=== PATIENT | female | born 1945 | race Caucasian/White ===

== ENCOUNTER 2021-09-05 13:36 | Inpatient (IN) | payer OTHER, BC, SELFPAY ==
[~2021-09-05] VITALS: Ht 152.4 cm; Wt 56.7 kg
[~2021-09-05 13:36] MED LIST: ACET-2619 PO; ALEN70SO1 PO; AMOX-999 PO; BLEOS OP; CALC-1236 PO; CEPH250C16 PO; CHOL100012 PO; FENO145T PO; FURO-570 PO; GABA300C PO; HUM SUBQ; INSU100S22 SUBQ; KETO5SOL OP; METO100T14 PO; OMEP20EC11 PO; SPIR50TA PO
[2021-09-05 13:58] VITALS: BP 151/84
--- NOTE | 2021-09-05 14:12 | NUR ---
PT TAKEN TO IMAGING AT THIS TIME
--- NOTE | 2021-09-05 14:21 | NUR ---
76 Y/O F BIBA BLS FROM HOME, C/O L SIDED PAIN AND L HIP PAIN POST MECHANICAL FALL, PT STATES SHE WAS ON FLOOR FOR 4 HOURS BEFORE [facility] ARRIVED. DENIES LOC, SYNCOPE, OR HEAD/NECK PAIN. UPON ARRIVAL, PT HAS L SIDED HEMATOMA ON POSTERIOR HEAD WITH SKIN TEAR ON L ELBOW. [facility] REPORTS PT WAS IN AFIB AND RVR. GLUCOSE EN ROUTE WAS 84. UPON ARRIVAL, PT WAS ASSISTED TO BATHROOM BY RN, INSTRUCTED TO PULL CORD WHEN DONE, PT STOOD UP AND TRIED WALK AND FELL ON L SIDE. NO LOC, NO SYNCOPE. PT WAS ASSISTED TO BED, PUT ON CARDIAC AND OXYGEN MONITOR. ERMD, SECURITY COMPLIANCE ENGINEER, HEALTHCARE ECONOMICS CONSULTANT AND ER DIRECTOR MADE AWARE. PMH: AFIB, DM2, HTN NKA MED: DENIES BLOOD THINNERS OR ANY AT HOME MEDS
[2021-09-05] MEDS ORDERED: DILTIAZEM 25 MG/5 ML VIAL IVP ONE ×4 (14:30→17:10)
[2021-09-05 14:49] LABS: BASOPHILS % (AUTO) 0.6 % (0.0-2.0); EOSINOPHILS % (AUTO) 0.3 % (0.0-4.0); HEMATOCRIT 39.2 % (36-48); HEMOGLOBIN 12.1 g/dL (12.0-16.0); LYMPHOCYTES # (AUTO) 0.7 K/uL (2.5-16.5); MEAN CORPUSCULAR HEMOGLOBIN 22 pg (27-31); MEAN CORPUSCULAR HGB CONC 31 g/dL (33-37); MEAN CORPUSCULAR VOLUME 72.3 fL (80-94); MONOCYTES # (AUTO) 0.7 K/uL (0.8-1.0); MONOCYTES % (AUTO) 8.6 % (1.7-9.3); NEUTROPHILS % (AUTO) 82.5 % (42.2-75.2); PLATELET COUNT (AUTO) 192 K/uL (140-450); RED BLOOD CELL COUNT(AUTO) 5.42 MIL/uL (4.20-5.40); RED CELL DISTRIBUTION WIDTH 36.2 % (11.6-13.7); WHITE BLOOD COUNT (AUTO) 8.4 K/uL (4.8-10.8)
[2021-09-05] MEDS ORDERED: ASPIRIN 81 MG TAB.CHEW PO ONE (14:55)
[2021-09-05 15:08] LABS: PROTHROMBIN TIME 11.2 secs (10.8-13.4)
[2021-09-05 15:10] LABS: ALBUMIN 2.8 g/dL (3.4-5.0); ANION GAP 14.3 (8-16); ASPARTATE AMINOTRANSFERASE 44 U/L (15-37); CARBON DIOXIDE 26.8 mmol/L (21-32); CHLORIDE 100 mmol/L (98-107); CREATININE 1.7 mg/dL (0.6-1.3); GLUCOSE 69 mg/dL (74-106); POTASSIUM 4.1 mmol/L (3.5-5.1); SODIUM SERUM 137 mmol/L (136-145); TOTAL BILIRUBIN 1.1 mg/dL (0.0-1.0); UREA NITROGEN, BLOOD 33 mg/dL (7-18)
[2021-09-05] MEDS ORDERED: DILTIAZEM 30 MG TAB PO ONE (17:10)
--- NOTE | 2021-09-05 17:37 | NUR ---
PT HAS SOFT BOWEL MOVEMENT, STOOL IS DARK BROWN AT THIS TIME. STEVIE CARE DONE. DIAPERED AND PUREWICK PLACED AT THIS TIME.
[2021-09-05] MEDS ORDERED: POTASSIUM CHLORIDE 10 MEQ TABER PO PRN (17:40)
[2021-09-05] MEDS ORDERED: DOCUSATE SODIUM 100 MG GELCAP PO PRN (17:40)
[2021-09-05] MEDS ORDERED: MORPHINE SULFATE 2 MG/ML SYR IVP PRN (17:40)
[2021-09-05] MEDS ORDERED: MAG SULF 2000 MG/WATER PREMIX 50 ML IV PRN (17:40)
[2021-09-05] MEDS ORDERED: ONDANSETRON 4 MG/2 ML VIAL IVP PRN (17:40)
[2021-09-05] MEDS ORDERED: SODIUM PHOS / POTASSIUM PHOS 1 PKT PDR PO PRN (17:40)
[2021-09-05] MEDS ORDERED: LORazepam 2 MG/ML VIAL IM/IVP PRN (17:40)
[2021-09-05] MEDS ORDERED: DEXTROSE 50% 50 ML SYR IVP PRN (17:50)
[2021-09-05 17:54] LABS: BILIRUBIN,URINE NEGATIVE (NEGATIVE); BLOOD, URINE TRACE-I (NEGATIVE); COLOR,URINE YELLOW (YELLOW); LEUKOCYTE ESTERASE ,URINE 1+ (NEGATIVE); NITRITE, URINE POSITIVE (NEGATIVE); PH,URINE 5.5 (5.0-9.0); UGLUCOSE NEGATIVE (NEGATIVE)
[2021-09-05] MEDS: NACL 0.9% 1,000 ML IV SCH (18:04)
[2021-09-05 18:13] LABS: CHOL/HDL RATIO 3.7 (1-4.5); FREE T4 (FREE THYROXINE) 1.57 ng/dL (0.76-1.46); PHOSPHORUS 3.7 mg/dL (2.5-4.9); THYROID STIMULATING HORMONE 2.3 uIU/mL (0.34-3.74)
[2021-09-05 18:28] LABS: APPEARANCE,URINE HAZY (CLEAR)
[2021-09-05 18:34] LABS: RBC,URINE 0-5 /HPF (0-5)
[2021-09-05 18:35] LABS: WBC,URINE 80-100 /HPF (0-5)
[2021-09-05 18:36] LABS: TRICHOMONAS,URINE None Seen /HPF (None Seen); YEAST,URINE None Seen /HPF (None Seen)
--- NOTE | 2021-09-05 19:12 | NUR ---
REPORT RECEIVED FROM JESSA HAYES FOR CONTINUITY OF PT CARE.
--- NOTE | 2021-09-05 19:12 | NUR ---
Pt report given to MACHO GERMAIN. Transfer of care at this time.
--- NOTE | 2021-09-05 19:30 | NUR ---
PT SITTING IN BED W X1 SIDERAIL UP W TRAY AT OTHER SIDE OVER BED. PT EATING DINNER. PT REPORTS 6/10 L ARM AND HIP PAIN. PT TACHYCARDIC AT 119, OTHERWISE VSS. BREATHING EVEN AND UNLABORED. NAD NOTED, WILL CONTIUE TO MONITOR. NS RUNNING TO R FOREARM 20G W 930 ML VTBI.
--- NOTE | 2021-09-05 19:30 | NUR ---
Note bethanieone in EDM - 09/05/21 at 1941 by MARIANN PT SITTING IN BED W X1 SIDERAIL UP W TRAY AT OTHER SIDE OVER BED. PT EATING DINNER. PT REPORTS 6/10 L ARM AND HIP PAIN. PT TACHYCARDIC AT 119, OTHERWISE VSS. BREATHING EVEN AND UNLABORED. NAD NOTED, WILL CONTIUE TO MONITOR. NS RUNNING TP
--- NOTE | 2021-09-05 19:43 | NUR ---
PT FINISHED DINNER, TRAY REMOVED. BED LOCKED IN LOWEST POSITION W X2 SIDERAILS UP FOR PT SAFETY.
--- NOTE | 2021-09-05 19:57 | NUR ---
Ultrasound at bedside.
--- NOTE | 2021-09-05 20:08 | NUR ---
SPOKE W DR. CHE IN REGARDS TO PT HR FLUCTUATING TO 157. PER DR. CHE TO CONTACT DR. MANCILLA.
--- NOTE | 2021-09-05 20:13 | NUR ---
CALLED FOR . WILL RECEIVED A CALL BACK.
--- NOTE | 2021-09-05 20:15 | NUR ---
SPOKE W DR. GODOY ORCHARD WORKER IN REGARD TO PT HR INCREASING TO 150s. PER DR. AMANDA ORDER FOR METOPROLOL 5MG IVP Q3H PRN FOR HR ABOVE 120, AND X1 OF METOPROLOL 100MG TAB X1 HOUR AFTER THE METOPROLOL 5MG IVP ADMINISTRATION. AWARE OF DR. FITZGERALD ORDER.
[2021-09-05] MEDS: METOPROLOL 5 MG/5 ML VIAL IVP PRN (20:57)
[2021-09-05] MEDS: BLOOD GLUCOSE MONITORING 1 DEV DEV FS SCH (21:05)
[2021-09-05] MEDS: INSULIN LISPRO SLIDING SCALE 100 UNITS/ML VIAL SUBQ PRN (21:11)
--- NOTE | 2021-09-05 21:33 | NUR ---
Pt report given to JESSA CAMACHO. Transfer of care at this time.
--- NOTE | 2021-09-05 21:46 | NUR ---
PT SPEAKING ON THE PHONE. BED LOCKED IN LOWEST POSITION W X2 SIDERAILS UP FOR PT SAFETY. BLANKET ON. BREATHING EVEN AND UNLABORED. NAD NOTED, WILL CONTINUE TO MONITOR.
--- NOTE | 2021-09-05 22:07 | NUR ---
Patient will be admitted to care of DR. CHE. Admited to TELEMETRY. Will go to room 123B. Belongings list completed. Report to JESSA YADAV.
[2021-09-06 01:13] VITALS: BP 149/86
[2021-09-06] MEDS: HYDROcodone/APAP 5/325 MG 1 TAB TAB PO PRN ×2 (02:04→13:41)
[2021-09-06 04:00] VITALS: BP 119/55
[2021-09-06] MEDS: NACL 0.9% 1,000 ML IV SCH ×2 (05:05→13:40)
--- NOTE | 2021-09-06 05:51 | NUR ---
the pateint was admitted on 09/05/2021 for dizziness and near syncope with hx of fall in the restroom. Head CT and carotid duplex were negative . the pateint has hx of DM,HTN and AFIB . Her breathing uis even and unlabored. the pateint stated that she has hx of liver cirrhosis and paracentesis. her abdomen is rigid and distended.her feet are swollen . she is on heart monitor.she had afib at rate 110-125 . she lies comfortable in her bed. bed is low position . comfort and safety measures are provided
[2021-09-06 06:28] LABS: BASOPHILS % (AUTO) 0.4 % (0.0-2.0); EOSINOPHILS % (AUTO) 0.3 % (0.0-4.0); HEMOGLOBIN 9.9 g/dL (12.0-16.0); LYMPHOCYTES # (AUTO) 0.5 K/uL (2.5-16.5); LYMPHOCYTES % (AUTO) 10.3 % (20.5-51.1); MEAN CORPUSCULAR HEMOGLOBIN 23 pg (27-31); MEAN CORPUSCULAR HGB CONC 31 g/dL (33-37); MEAN CORPUSCULAR VOLUME 72.8 fL (80-94); MONOCYTES # (AUTO) 0.6 K/uL (0.8-1.0); MONOCYTES % (AUTO) 13.3 % (1.7-9.3); NEUTROPHILS # (AUTO) 3.3 K/uL (1.8-7.7); NEUTROPHILS % (AUTO) 75.7 % (42.2-75.2); PLATELET COUNT (AUTO) 126 K/uL (140-450); RED BLOOD CELL COUNT(AUTO) 4.39 MIL/uL (4.20-5.40); RED CELL DISTRIBUTION WIDTH 35.8 % (11.6-13.7); WHITE BLOOD COUNT (AUTO) 4.4 K/uL (4.8-10.8)
[2021-09-06 06:44] LABS: ALBUMIN 2.2 g/dL (3.4-5.0); ANION GAP 11.6 (8-16); ASPARTATE AMINOTRANSFERASE 33 U/L (15-37); CARBON DIOXIDE 26.1 mmol/L (21-32); CHLORIDE 102 mmol/L (98-107); CREATININE 1.7 mg/dL (0.6-1.3); GLUCOSE 251 mg/dL (74-106); MAGNESIUM 2.2 mg/dL (1.8-2.4); POTASSIUM 4.7 mmol/L (3.5-5.1); SODIUM SERUM 135 mmol/L (136-145); TOTAL BILIRUBIN 0.7 mg/dL (0.0-1.0); UREA NITROGEN, BLOOD 32 mg/dL (7-18)
[2021-09-06 08:00] VITALS: BP 129/66
[2021-09-06] MEDS ORDERED: METOPROLOL SUCCINATE 50 MG TABER PO SCH (09:00)
[2021-09-06] MEDS ORDERED: PREDNISOL/SULFACE 0.23%-10% OP SOL. 5 ML BTL OP SCH (09:00)
[2021-09-06] MEDS ORDERED: KETOROLAC 0.5% OP 3 ML BTL OP SCH (09:00)
--- NOTE | 2021-09-06 10:13 | NUR ---
PATIENT HAS BEEN SCREENED AND CATEGORIZED MODERATE NUTRITION RISK. PATIENT WILL BE SEEN WITHIN 3-5 DAYS OF ADMISSION. 09/08/21 09/10/[address]
[2021-09-06 12:00] VITALS: BP 115/83
[2021-09-06] MEDS: INSULIN LISPRO 100 UNITS/ML VIAL SUBQ SCH ×3 (13:00→17:24)
[2021-09-06] MEDS ORDERED: LORazepam 0.5 MG TAB PO PRN (13:15)
[2021-09-06] MEDS: BLOOD GLUCOSE MONITORING 1 DEV DEV FS SCH ×4 (13:30→21:00)
[2021-09-06] MEDS: METOPROLOL 5 MG/5 ML VIAL IVP PRN (13:38)
[2021-09-06] MEDS: GABAPENTIN 300 MG CAP PO SCH (13:40)
[2021-09-06] MEDS ORDERED: TENO25TA PO (13:56)
[2021-09-06] MEDS: FUROSEMIDE 40 MG TAB PO SCH (14:00)
--- NOTE | 2021-09-06 14:29 | NUR ---
Patient's abdomen distended and heart rate was rapid around 120's. Called and notified Physician. Administered Metoprolol and medications restarted as ordered. Patient currently resting in bed and has no further needs.
--- NOTE | 2021-09-06 14:59 | NUR ---
DC PLANNING: RAJWINDER SPOKE WITH THE PATIENT AT BEDSIDE. SHE ADMITTED THROUGH THE ED S/P FALL AT HOME AFTER FEELING DIZZY. THE PATIENT LIVES IN [place] CLOSE TO THIS HOSPITAL IN A SECOND FLOOR APARTMENT BY HERSELF, THE NAME OF THE APARTMENT COMPLEX IS [facility] [place]. THE PATIENT HAS LIVED THERE FOR A YEAR AND A HALF, AND IS ABLE TO AMBULATE INDEPENDENTLY USING A CANE. HER SISTER IN LAW KUMAR ([phone]) IS HER [facility] WORKER AND HAS 62 HRS/MONTH, SEES THE PATIENT FOR 2 HRS/DAY. THE PATIENTS BROTHER AND SISTER IN LAW PROVIDE FINANCIAL SUPPORT FOR THE PATIENT SHE HAS INCOME OF $1200/MONTH. THE PATIENT HAS BEEN WAITING FOR PLACEMENT IN SENIOR HOUSING FOR 5 YEARS PER KUMAR. THE PATIENT IS INDEPENDENT WITH ADL'S AND CAN'T REMEMBER IF SHE'S HAD HOME HEALTH IN THE PAST. THE PATIENT IS FOLLOWED AT [facility] BY DR WILKINSON FOR LIVER DISEASE AND DRIVES HERSELF TO HER APPOINTMENTS. RAJWINDER ALSO RECEIVED A CALL FROM THE PATIENTS COUSIN ELEAZAR PERAZA ([phone]) WHO CONFIRMED CM'S INFORMATION AND EXPRESSED CONCERN ABOUT THE PATIENT LIVING ALONE, A CONCERN THAT WAS ALSO VOICED BY KUMAR. THE PATIENT HAS REFUSED TO GO TO A SNF IN THE PAST, FAMILY FEELS SHE NEEDS TO LIVE WITH SOMEONE, RAJWINDER EXPLAINED THAT SNF PLACEMENT WOULD NOT BE SENIOR LOAN PROCESSOR UNLESS THE PATIENT OR FAMILY PAID OUT OF POCKET. THE PATIENT HAS BEEN EVALUATED BY P.T. AND IS ABLE TO AMBULATE 40 FT, CM WILL WAIT FOR FURTHER RECOMMENDATIONS FROM P.T. AND THE ATTENDING MD TO FINALIZE THE DC PLAN. PATIENT WILL EITHER GO TO SNF OR WILL DC WITH HOME HEALTH FOR SAFETY [place] AND P.T.. RAJWINDER WILL FOLLOW FOR NEEDS. Addendum: 09/07/21 at 1148 by Ale Gibbs CM DC PLANNING: THE PATIENT WAS SEEN BY Constantine TODAY, RECOMMENDATION IS FOR SNF FOR CONTINUED REHAB. THE PATIENT IS S/P THORACENTESIS YESTERDAY WITH 6725 ML PULLED OFF. CM SPOKE WITH RAJWINDER KHAN FOR BS PROMISE, ASKED FOR CONTRACTED SNF LIST AND TRANSPORT TO SNF. CLINICALS FAXED PER [facility] REQUEST. AUTH# FOR TRANSPORT IS [id number], CM CAN USE [employer], OR CALL THE BS TRANSPORT DEPT AT [phone]. CM WILL WAIT FOR THE LIST OF CONTRACTED SNF'S AND DISCUSS OPTIONS WITH THE PATIENT. CM WILL FOLLOW FOR NEEDS. Addendum: 09/08/21 at 1044 by Ale Gibbs CM DC PLANNING: [facility]. CM CALLED [facility], THEY STATE THAT THEY WILL FIND A SNF FOR THE PATIENT BUT A DC ORDER HAS TO BE FAXED TO THEM FIRST. RAJWINDER SPOKE WITH THE ATTENDING MD, ORDER TO BE PLACED FOR DC TO SNF WHEN BED AVAILABLE. DC ORDER FAXED TO [facility], RAJWINDER WILL FOLLOW UP. Addendum: 09/09/21 at 0917 by Ale Gibbs CM DC PLANNING: CONTACTED SNF LIST RECEIVED FROM [facility], OPTIONS ARE [facility], [facility], [facility] AND [facility]. REFERRALS FAXED TO ALL CONTRACTED SNFS, RAJWINDER RECEIVED A CALL FROM GAIL AT [facility] STATING SHE'S DECLINING THE PATIENT BECAUSE THEY DON'T HAVE ANY OPEN FEMALE BEDS. [facility] ALSO DECLINED DUE TO LACK OF FEMALE BEDS. RAJWINDER SPOKE WITH LARS FROM [facility], ENDORSED THAT THE PATIENT CAME FROM HOME NOT FROM A SNF. [facility] ALSO DECLINED BUT WILLIAM IS NOT SURE WHY, STATES SHE WILL SPEAK WITH THE DON AND UPDATE THEM ON THE PATIENTS ORIGINATING RESIDENCE OF HOME, NOT SNF. RAJWINDER WILL CONTINUE TO FOLLOW FOR NEEDS. Addendum: 09/09/21 at 1444 by Ale Gibbs CM DC PLANNING: CM SPOKE WITH LARS AT [facility], STATES THEY HAVE TO CHANGE ROOMS TO ACCOMODATE THE PATIENT. RAJWINDER ENDORSED THAT SHE WILL BE CLINICALLY STABLE FOR DC IN THE NEXT 24-48 HOURS SHE IS HAVING AN EGD TODAY, ALSO GAVE THE PHONE NUMBER FOR AUTHORIZATION FOR THE SNF FROM [facility]. CM ALSO SPOKE WITH RAJWINDER OLIVA AT [facility] ([phone]), ENDORSED THAT 3 SNF'S HAVE DECLINED AND THAT [facility] IS PENDING ACCEPTANCE. IF THE PATIENT DC'S ON THE WEEKEND, TRANSPORT THROUGH [facility] IS 04/06, PHONE NUMBER TO ARRANGE TRANSPORT IS [phone]. CM WILL FOLLOW FOR NEEDS. Addendum: 09/12/21 at 1501 by Ale Gibbs CM DC PLANNING: CM CALLED [facility], [facility], [facility] AND [facility], ALL STATE THAT THEY DON'T HAVE OPEN FEMALE BEDS AT THIS TIME. CM CALLED [facility] CASE MANAGEMENT ([phone]) TO NOTIFY THEM OF LACK OF BEDS AT THEIR CONTRACTED FACILITIES, THEY WILL CALL CM TOMORROW WITH MORE OPTIONS. CM WILL FOLLOW FOR NEEDS. Addendum: 09/13/21 at 1118 by Ale Gibbs CM DC PLANNING: CM SPOKE WITH ESSENCE AT [facility], TOLD THAT PATIENT CAN GO ANYWHERE SHE'S ACCEPTED AND THAT [facility] WILL DO AN TRISTIN AT 100% MEDICARE. REFERRALS FAXED TO [facility], PATIENT ACCEPTED TO [facility]. [address] [facility], [address] [address], '[facility] ACC[facility]PTING CM SPOKE WITH RAJWINDER OLIVA AT [facility], ENDORSED THAT VLADIMIR FROM [facility] WILL CALL HER FOR AUTH. HAZEL WILL CALL BACK WITH [facility] ONCE SHE SPEAKS WITH VLADIMIR. CM WILL FOLLOW FOR NEEDS. Addendum: 09/13/21 at 1531 by Ale Gibbs CM DC PLANNING: THE PATIENT WAS SET UP FOR A 1500 CONFIGURATION CONSULTANT WITH [facility] TO GO TO [facility], SHE BECAME HYPOTENSIVE AND THE DISCHARGE WAS HELD. CM NOTIFIED [facility] AND [facility] OF THE CHANGE IN PLAN. CM WILL FOLLOW FOR NEEDS. Addendum: 09/14/21 at 1026 by Ale Gibbs CM DC PLANNING: RAJWINDER SPOKE WITH RAJWINDER OLIVA FOR [facility] REGARDING AN ORDER FOR LTAC REFERRAL. HAZEL STATES THAT AN MD TO MD CONVERATION IS NEEDED, DR. PAZ'S PHONE NUMBER GIVEN TO HER TO FACILITATE THIS. UPDATED CLINICALS FAXED TO [facility]. THE PATIENT HAS HAD AN ELEVATED HER, HAD LOW B/P YESTERDAY AND RECEIVED A NS BOLUS. WBC'S 20.48 TODAY, BC'S ORDERED. CR 2.4, THE PATIENT IS ALREADY POSITIVE FOR ENTERBACTER IN URINE, CARDIOLOGY IS FOLLOWING. CM WILL FOLLOW FOR NEEDS. Addendum: 09/14/21 at 1146 by Ale Gibbs DC PLANNING: TC FROM RAQUEL AT [facility] ([phone]) ASKING FOR CLINICAL REVIEW RELATED TO THE REQUEST FOR LTAC PLACEMENT. RAJWINDER ENDORSED THAT THE PATIENT IS END STAGE LIVER DISEASE REQUIRING REGULAR PARACENTESIS AND HAS REQUIRED THORACENTESIS IN THE PAST. ALSO THAT THE PATIENT HAS AN ELEVATED WHITE COUNT, HYPERKALEMIA AND RENAL FAILURE WITH BC'S PENDING, TACHYCARDIA REQUIRING FREQUENT MEDICATION ADJUSTMENT AND HYPOTENSION. ALSO ENDORSED THE EPISODE OF A-FIB WITH RVR. RAQUEL STATES THAT SHE WILL REFER THE CASE FOR A PEER TO PEER REVIEW BUT "CAN'T GUARANTEE THAT LTAC WILL BE APPROVED". CM WILL FOLLOW FOR NEEDS. Addendum: 09/14/21 at 1302 by Ale Gibbs CM DC PLANNING: RAJWINDER SPOKE AT LENGTH WITH THE PATIENTS SANDEEP HOLGUIN ([phone]) WHO IS THE SECOND PERSON LISTED ON THE PATIENTS ADVANCE DIRECTIVE FOR MEDICAL DECISION MAKING. THE PATIENTS SISTER IS HER PRIMARY BUT SHE IS CURRENTLY IN A SNF IN [place] WITH DX OF DEMENTIA. CHELSIE STATES THAT SHE SPOKE WITH DR PAZ REGARDING THE PATIENTS CURRENT MEDICAL STATUS, CM DISCUSSED SENIOR LOAN PROCESSOR MANAGEMENT AND PROGNOSIS WITH CHELSIE. AT THIS TIME IT DOES NOT SEEM THAT THE PATIENT WILL BE ABLE TO RETURN HOME AND WILL NEED SKILLED NURSING PLACEMENT. ASSISTED LIVING IS NOT AN OPTION BECAUSE OF THE PATIENTS HEALTH AND MANAGEMENT NEEDS, CM ALSO DISCUSSED PALLIATIVE CARE VS HOSPICE. ALSO ENDORSED THAT THE PATIENT MIGHT BE REFERRED TO LTAC DEPENDING ON INSURANCE AUTHORIZATION AND IF NOT CM WILL HAVE TO SEE IF THE ACCEPTING SNF, [facility], IS ABLE/WILLING TO DO PALLIATIVE OR HOSPICE CARE. CHELSIE STATES SHE WILL SPEAK WITH OTHER FAMILY MEMBERS REGARDING END OF LIFE MANAGEMENT AND WILL WAIT TO HEAR FROM CM REGARDING THE PATIENTS PLACEMENT OF SNF VS LTAC. CM WILL FOLLOW FOR NEEDS. Addendum: 09/15/21 at 0902 by Ale Gibbs CM DC PLANNING: RAJWINDER SPOKE WITH RAQUEL AT [facility] THIS MORNING ([phone]), SHE STATES THAT DR PAZ SPOKE WITH DR MAJOR YESTERDAY AND THAT IT WAS AGREED THAT THE PATIENT WILL STAY IN THIS HOSPITAL FOR AT LEAST ANOTHER TWO DAYS WHILE SHE IS BEING WORKED FOR HER NEW FINDINGS, AND THEN SNF WILL BE CONSIDERED THE DC PLAN. LTAC PLACEMENT IS NOT AUTHORIZED PER RAQUEL. RAJWINDER WILL FOLLOW FOR NEEDS. Addendum: 09/15/21 at 1044 by Ale Gibbs CM DC PLANNING: RAJWINDER SPOKE WITH VLADIMIR AT [facility] TO CONFIRM THAT THEY WILL STILL ACCEPT THE PATIENT. RAJWINDER ENDORSED A POTENTIAL DC TO [facility] THIS WEEKEND AND THAT NURSING WILL BE THE CONTACT POINT. PLEASE SEE PREVIOUS NOTES FOR TRANSPORT INFORMATION AND AUTH FROM [facility], TRANSPORT WILL BE WITH JOSE [facility]BERT[facility] ([phone]). RAJWINDER ALSO LEFT A MESSAGE FOR THE PATIENTS SANDEEP KINCAID ([phone]) TO LET HER KNOW THAT THE DC PLAN IS STILL FOR THE PATIENT TO GO TO [facility]. RAJWINDER WILL FOLLOW FOR NEEDS.
[2021-09-06 16:00] VITALS: BP 99/55
[2021-09-06] MEDS: SPIRONOLACTONE 50 MG TAB PO SCH (17:12)
[2021-09-06] MEDS ORDERED: ALBUMIN HUMAN 5 % 250 ML IV ONE (19:30)
[2021-09-06 20:00] VITALS: BP 105/56
[2021-09-06] MEDS: METOPROLOL SUCCINATE 50 MG TABER PO SCH (21:55)
[2021-09-06 23:20] LABS: APPEARANCE,SPUN,BODY FLUID CLEAR (CLEAR); APPEARANCE,UNSPUN,BODY FLUID CLEAR (CLEAR); SPECIMENTYPE,BODY FLUID PARACENTESIS
[2021-09-06 23:21] LABS: COLOR,BODY FLUID COLORLESS (LT YELLOW); RBC, BODY FLUID 0 /cu. mm.; TOTAL VOLUME,BODY FLUID 6900 mL; WBC, BODY FLUID 100 /cu. mm.
[2021-09-06 23:22] LABS: GLUCOSE,BODY FLUID 329 mg/dL; POLYNUCLEAR, BODY FLUID 60 %
[2021-09-06 23:23] LABS: LDH,BODY FLUID 60 U/L
[2021-09-06] MEDS: ZOLPIDEM 5 MG TAB PO PRN (23:36)
[2021-09-07] VITALS: BP 127/77
[2021-09-07] MEDS: METOPROLOL 5 MG/5 ML VIAL IVP PRN ×3 (02:11→12:46)
[2021-09-07 04:00] VITALS: BP 129/69
[2021-09-07 05:33] LABS: BASOPHILS % (AUTO) 0.4 % (0.0-2.0); EOSINOPHILS % (AUTO) 0.9 % (0.0-4.0); HEMATOCRIT 33.1 % (36-48); HEMOGLOBIN 10.1 g/dL (12.0-16.0); LYMPHOCYTES # (AUTO) 0.6 K/uL (2.5-16.5); LYMPHOCYTES % (AUTO) 16.1 % (20.5-51.1); MEAN CORPUSCULAR HEMOGLOBIN 23 pg (27-31); MEAN CORPUSCULAR HGB CONC 30 g/dL (33-37); MEAN CORPUSCULAR VOLUME 74.3 fL (80-94); MONOCYTES # (AUTO) 0.5 K/uL (0.8-1.0); MONOCYTES % (AUTO) 13.5 % (1.7-9.3); NEUTROPHILS # (AUTO) 2.6 K/uL (1.8-7.7); NEUTROPHILS % (AUTO) 69.1 % (42.2-75.2); PLATELET COUNT (AUTO) 86 K/uL (140-450); RED BLOOD CELL COUNT(AUTO) 4.45 MIL/uL (4.20-5.40); WHITE BLOOD COUNT (AUTO) 3.8 K/uL (4.8-10.8)
[2021-09-07 06:32] LABS: ALBUMIN 2.2 g/dL (3.4-5.0); ANION GAP 11.5 (8-16); ASPARTATE AMINOTRANSFERASE 30 U/L (15-37); CARBON DIOXIDE 25.7 mmol/L (21-32); CHLORIDE 103 mmol/L (98-107); CREATININE 1.5 mg/dL (0.6-1.3); GLUCOSE 191 mg/dL (74-106); POTASSIUM 4.2 mmol/L (3.5-5.1); SODIUM SERUM 136 mmol/L (136-145); TOTAL BILIRUBIN 0.8 mg/dL (0.0-1.0); UREA NITROGEN, BLOOD 30 mg/dL (7-18)
[2021-09-07 07:52] VITALS: BP 148/77
--- NOTE | 2021-09-07 08:58 | NUR ---
Patient awake, alert and oriented continues to have heart rate that is going up and down IN THE 116-145. Safety measures in place as patient is impulsive. Bed lowered and alarm activated. Patient has no further needs.
[2021-09-07] MEDS ORDERED: FUROSEMIDE 40 MG TAB PO SCH (09:00)
[2021-09-07] MEDS ORDERED: SPIRONOLACTONE 50 MG TAB PO SCH (09:00)
[2021-09-07] MEDS: BLOOD GLUCOSE MONITORING 1 DEV DEV FS SCH ×4 (09:55→21:00)
[2021-09-07] MEDS: FUROSEMIDE 40 MG TAB PO SCH (09:56)
[2021-09-07] MEDS: SPIRONOLACTONE 50 MG TAB PO SCH (09:56)
[2021-09-07] MEDS: METOPROLOL SUCCINATE 50 MG TABER PO SCH ×2 (09:57→21:00)
[2021-09-07] MEDS: GABAPENTIN 300 MG CAP PO SCH (09:57)
[2021-09-07] MEDS: INSULIN LISPRO 100 UNITS/ML VIAL SUBQ SCH ×3 (10:04→18:07)
[2021-09-07] MEDS: HYDROcodone/APAP 5/325 MG 1 TAB TAB PO PRN (10:05)
[2021-09-07 12:00] VITALS: BP 143/69
[2021-09-07] MEDS: INSULIN LISPRO SLIDING SCALE 100 UNITS/ML VIAL SUBQ PRN ×2 (12:31→18:09)
[2021-09-07 18:33] VITALS: BP 103/62
[2021-09-07] MEDS: SODIUM FERRIC GLUCONATE 125 MG in NACL 0.9% 100 ML IV SCH (22:05)
[2021-09-07] MEDS: ALBUMIN HUMAN 25% 100 ML IV SCH (22:05)
[2021-09-07] MEDS: LACTULOSE 20 GM/30 ML UDC PO SCH (22:05)
[2021-09-08] VITALS: BP 105/56
[2021-09-08] MEDS: ZOLPIDEM 5 MG TAB PO PRN (00:38)
[2021-09-08 04:00] VITALS: BP 117/61
[2021-09-08 05:37] LABS: BASOPHILS % (AUTO) 0.6 % (0.0-2.0); EOSINOPHILS % (AUTO) 0.9 % (0.0-4.0); HEMATOCRIT 31.4 % (36-48); HEMOGLOBIN 9.7 g/dL (12.0-16.0); LYMPHOCYTES # (AUTO) 0.6 K/uL (2.5-16.5); LYMPHOCYTES % (AUTO) 15.8 % (20.5-51.1); MEAN CORPUSCULAR HEMOGLOBIN 23 pg (27-31); MEAN CORPUSCULAR HGB CONC 31 g/dL (33-37); MEAN CORPUSCULAR VOLUME 74.2 fL (80-94); MONOCYTES # (AUTO) 0.5 K/uL (0.8-1.0); MONOCYTES % (AUTO) 13.3 % (1.7-9.3); NEUTROPHILS # (AUTO) 2.5 K/uL (1.8-7.7); NEUTROPHILS % (AUTO) 69.4 % (42.2-75.2); PLATELET COUNT (AUTO) 86 K/uL (140-450); RED BLOOD CELL COUNT(AUTO) 4.24 MIL/uL (4.20-5.40); RED CELL DISTRIBUTION WIDTH 34.1 % (11.6-13.7); WHITE BLOOD COUNT (AUTO) 3.6 K/uL (4.8-10.8)
[2021-09-08 06:00] LABS: ALBUMIN 2.6 g/dL (3.4-5.0); ANION GAP 13.1 (8-16); ASPARTATE AMINOTRANSFERASE 33 U/L (15-37); CARBON DIOXIDE 23.4 mmol/L (21-32); CHLORIDE 103 mmol/L (98-107); CREATININE 1.4 mg/dL (0.6-1.3); GLUCOSE 190 mg/dL (74-106); POTASSIUM 4.5 mmol/L (3.5-5.1); SODIUM SERUM 135 mmol/L (136-145); TOTAL BILIRUBIN 0.9 mg/dL (0.0-1.0); UREA NITROGEN, BLOOD 31 mg/dL (7-18)
--- NOTE | 2021-09-08 06:19 | NUR ---
the patient is alert and oriented x4. her bp is 105/51. metoprolol was held .her HR was 115-120 AIFB. , she stated that he had insomina and can not sleep. ambien was given , she slept comfortable in her bed. breathing is even and unlabored . pateint denies any pain . comfort and safety measures were provided
--- NOTE | 2021-09-08 07:58 | NUR ---
Patient awake, alert and oriented. Able to verbalize needs. Denies pain but abdomen distended and firm. Safety measures in place and patient has no further needs.
[2021-09-08 08:00] VITALS: BP 106/70
[2021-09-08] MEDS: BLOOD GLUCOSE MONITORING 1 DEV DEV FS SCH ×4 (08:28→21:00)
[2021-09-08] MEDS: INSULIN LISPRO 100 UNITS/ML VIAL SUBQ SCH ×3 (08:29→17:08)
[2021-09-08] MEDS: INSULIN LISPRO SLIDING SCALE 100 UNITS/ML VIAL SUBQ PRN ×3 (08:30→17:09)
[2021-09-08] MEDS: ALBUMIN HUMAN 25% 100 ML IV SCH ×2 (09:21→21:00)
[2021-09-08] MEDS: METOPROLOL SUCCINATE 50 MG TABER PO SCH (09:22)
[2021-09-08] MEDS: GABAPENTIN 300 MG CAP PO SCH (09:22)
[2021-09-08] MEDS: FUROSEMIDE 40 MG TAB PO SCH (09:22)
[2021-09-08] MEDS: LACTULOSE 20 GM/30 ML UDC PO SCH ×2 (09:22→21:00)
[2021-09-08 12:00] VITALS: BP 105/42
[2021-09-08] MEDS ORDERED: FUROSEMIDE 20 MG/2 ML VIAL IVP SCH (12:00)
[2021-09-08] MEDS: SODIUM FERRIC GLUCONATE 125 MG in NACL 0.9% 100 ML IV SCH ×2 (12:12→21:00)
[2021-09-08] MEDS: PROPRANOLOL 20 MG TAB PO SCH ×2 (12:14→17:07)
[2021-09-08 14:42] LABS: AFP (TUMOR MARKER) 1.5 ng/mL (0.0-8.3)
[2021-09-08 16:00] VITALS: BP 109/60
[2021-09-08 20:00] VITALS: BP 99/63
--- NOTE | 2021-09-08 20:00 | NUR ---
PATIENT WAS RECEIVED ASLEEP, REGULAR BREATHING PATTERN, NO SIGNS OF DISTRESS AT THIS TIME.
[2021-09-08] MEDS ORDERED: METOPROLOL 50 MG TAB PO SCH (21:00)
--- NOTE | 2021-09-08 21:00 | NUR ---
ALL DUE PO MED AND IV MEDS WERE GIVEN, NEW IV ACCESS WAS OBTAINED IN PATIENT'S RIGHT FA 20 GAUGE HOLLIS WITH GOOD BLOOD RETURN, FLUSHED WITH NSS 5 ML
--- NOTE | 2021-09-08 21:30 | NUR ---
BS= 203 MG/DL 4 UNITS OF REGULAR INSULIN WAS ADMINISTERED IN THE ABDOMEN LLQ., TOLERATED WELL.
[2021-09-09] VITALS: BP 101/63
[2021-09-09] MEDS: INSULIN LISPRO SLIDING SCALE 100 UNITS/ML VIAL SUBQ PRN ×3 (00:08→20:47)
[2021-09-09 04:00] VITALS: BP 98/58
[2021-09-09 05:27] LABS: BASOPHILS % (AUTO) 0.2 % (0.0-2.0); EOSINOPHILS # (AUTO) 0.1 K/uL (0-0.4); EOSINOPHILS % (AUTO) 1.4 % (0.0-4.0); HEMOGLOBIN 9.6 g/dL (12.0-16.0); LYMPHOCYTES # (AUTO) 0.4 K/uL (2.5-16.5); LYMPHOCYTES % (AUTO) 11.7 % (20.5-51.1); MEAN CORPUSCULAR HEMOGLOBIN 23 pg (27-31); MEAN CORPUSCULAR HGB CONC 31 g/dL (33-37); MEAN CORPUSCULAR VOLUME 74.1 fL (80-94); MONOCYTES # (AUTO) 0.6 K/uL (0.8-1.0); MONOCYTES % (AUTO) 14.6 % (1.7-9.3); NEUTROPHILS # (AUTO) 2.8 K/uL (1.8-7.7); NEUTROPHILS % (AUTO) 72.1 % (42.2-75.2); PLATELET COUNT (AUTO) 82 K/uL (140-450); RED BLOOD CELL COUNT(AUTO) 4.18 MIL/uL (4.20-5.40); RED CELL DISTRIBUTION WIDTH 33.7 % (11.6-13.7); WHITE BLOOD COUNT (AUTO) 3.8 K/uL (4.8-10.8)
[2021-09-09 05:42] LABS: ALBUMIN 3.1 g/dL (3.4-5.0); ANION GAP 11.6 (8-16); ASPARTATE AMINOTRANSFERASE 32 U/L (15-37); CARBON DIOXIDE 25.3 mmol/L (21-32); CHLORIDE 103 mmol/L (98-107); CREATININE 1.3 mg/dL (0.6-1.3); GLUCOSE 214 mg/dL (74-106); POTASSIUM 3.9 mmol/L (3.5-5.1); SODIUM SERUM 136 mmol/L (136-145); TOTAL BILIRUBIN 1.1 mg/dL (0.0-1.0); UREA NITROGEN, BLOOD 28 mg/dL (7-18)
[2021-09-09] MEDS: BLOOD GLUCOSE MONITORING 1 DEV DEV FS SCH ×4 (07:29→20:42)
--- NOTE | 2021-09-09 07:35 | NUR ---
RECEIVED BEDSIDE REPORT FROM JOINERY PATTERNMAKER NURSE FOR CONTINUITY OF CARE. PT IS AOX4, ABLE TO MAKE NEEDS KNOWN. RESPIRATIONS EVEN AND UNLABORED. ON ROOM AIR AND NO DISTRESS NOTED. SKIN IS WARM, DRY, AND NON-INTACT. DENIES PAIN AT THE MOMENT. IV SITE ON RFA 20 G SALINE LOCKED. EGD PROCEDURE IS SCHEDULED TODAY. PLAN OF CARE DISCUSSED. SAFETY PRECAUTIONS IN PLACE. CALL LIGHT WITHIN REACH. WILL CONTINUE TO MONITOR.
[2021-09-09 08:00] VITALS: BP 109/60
--- NOTE | 2021-09-09 08:18 | NUR ---
all reports were given, transfer of care endorsed.
[2021-09-09] MEDS: INSULIN LISPRO 100 UNITS/ML VIAL SUBQ SCH ×3 (09:45→17:00)
[2021-09-09] MEDS: SODIUM FERRIC GLUCONATE 125 MG in NACL 0.9% 100 ML IV SCH (09:45)
[2021-09-09] MEDS: GABAPENTIN 300 MG CAP PO SCH (09:45)
[2021-09-09] MEDS: levoFLOXacin 250 MG TAB PO SCH (09:45)
[2021-09-09] MEDS: PROPRANOLOL 20 MG TAB PO SCH ×3 (09:45→17:20)
[2021-09-09] MEDS: LACTULOSE 20 GM/30 ML UDC PO SCH ×2 (09:45→17:17)
[2021-09-09] MEDS: ALBUMIN HUMAN 25% 100 ML IV SCH (09:45)
[2021-09-09] MEDS: SPIRONOLACTONE 50 MG TAB PO SCH (09:46)
--- NOTE | 2021-09-09 10:00 | NUR ---
ALL SCHEDULED MEDS GIVEN. PT IS STABLE. NO DISTRESS NOTED. WILL CONTINUE TO MONITOR.
--- NOTE | 2021-09-09 11:36 | NUR ---
BLOOD GLUCOSE CHECK WAS 128. NO INSULIN COVERAGE NEEDED.
[2021-09-09 12:00] VITALS: BP 109/60
--- NOTE | 2021-09-09 13:02 | NUR ---
09/09/21 RD INITIAL ASSESSMENT COMPLETED PLEASE REFER TO NUTRITION ASSESSMENT UNDER CARE ACTIVITY FOR ESTIMATED NUTRITIONAL NEEDS. 1. WHEN/IF MEDICALLY STABLE, CONSIDER HEPATIC +CCHO DIET AFTER RESUMING FEEDS 2. RD TO FOLLOW-UP 3-5 DAYS, MODERATE RISK REVIEWED BY STACIE DAVILA RD
[2021-09-09] MEDS: DIGOXIN 0.125 MG TAB PO SCH (13:10)
--- NOTE | 2021-09-09 13:18 | NUR ---
PATIENT REFUSED SCHEDULED BLOOD GLUCOSE CHECK. NOTIFIED MD AND IS AWARE OF THE SITUATION.
[2021-09-09] MEDS ORDERED: MIDAZOLAM 5 MG/5 ML VIAL ONE (14:40)
[2021-09-09] MEDS ORDERED: fentaNYL citrate 0.05 MG/ML VIAL ONE (14:40)
[2021-09-09] MEDS ORDERED: diphenhydrAMINE 50 MG/ML VIAL ONE (14:40)
--- NOTE | 2021-09-09 14:50 | NUR ---
OR NURSES AT PATIENT'S BEDSIDE. TRANSFERRING PATIENT TO OR FOR EGD PROCEDURE.
[2021-09-09] MEDS ORDERED: fentaNYL citrate 0.05 MG/ML VIAL IVP ONE (15:45)
[2021-09-09] MEDS ORDERED: MIDAZOLAM 2 MG/2 ML VIAL IVP ONE (15:45)
[2021-09-09 16:00] VITALS: BP 128/71
--- NOTE | 2021-09-09 16:00 | NUR ---
PATIENT RETURNED FROM EGD PROCEDURE. PT IS STABLE AND TOLERATED PROCEDURE WELL. WILL ASSESS VS FOR THE NEXT TWO HOURS
[2021-09-09] MEDS ORDERED: FUROSEMIDE 20 MG/2 ML VIAL IVP SCH (16:10)
--- NOTE | 2021-09-09 16:45 | NUR ---
OFFERED PAIN MEDICATIONS TO REDUCE PAIN. PT REFUSED MEDICATIONS. WILL CONTINUE TO ASSESS PATIENTS PAIN.
[2021-09-09] MEDS: FERROUS GLUCONATE 324 MG TAB PO SCH (17:17)
--- NOTE | 2021-09-09 17:30 | NUR ---
TRANSFERRED PATIENT TO ROOM 120 B.
--- NOTE | 2021-09-09 19:35 | NUR ---
ENDORSED TO DETECTIVE SERGEANT NURSE FOR CONTINUITY OF CARE. PT IS STABLE.
--- NOTE | 2021-09-09 19:36 | NUR ---
RECEIVED REPORT FROM AM SHIFT NURSE, FOR CONTINUITY OF CARE. PT IS A&OX4. ON RA WITH NO S/S OF DISTRESS, BREATHING IS EVEN AND UNLABORED. SKIN IS WARM, DRY AND NON-INTACT. ABDOMEN IS FIRM AND DISTENDED. PT IS AMBULATORY. IV SITE ON RFA 20 G SALINE LOCKED. PLAN OF CARE DISCUSSED. CALL LIGHT WITHIN REACH. ALL SAFETY MEASURES IN PLACE. WILL CONTINUE TO MONITOR.
[2021-09-09 20:00] VITALS: BP 104/75
--- NOTE | 2021-09-09 20:42 | NUR ---
BLOOD GLUCOSE CHECK WAS 205, ADMINISTERED INSULIN HUMALOG 4 UNITS ORDERED. MEDICATION EDUCATION PROVIDED AND PT VERBALIZED UNDERSTANDING.
[2021-09-09 20:52] LABS: HEPATITIS A ANTIBODY IGM NEGATIVE (NEGATIVE)
[2021-09-09 20:53] LABS: HEPATITIS B SURFACE ANTIBODY NON REACTIVE (NONREACTIVE)
[2021-09-09 20:54] LABS: HEPATITIS B CORE AB TOTAL POSITIVE (NEGATIVE); HEPATITIS B SURFACE ANTIGEN POSITIVE (NEGATIVE)
--- NOTE | 2021-09-09 21:25 | NUR ---
CHECKED ON PT NO S/S OF DISTRESS. RESPIRATIONS EVEN AND UNLABORED. DENIES ANY PAIN. WILL CONTINUE TO MONITOR.
--- NOTE | 2021-09-09 23:45 | NUR ---
ASSISTED PT TO BATHROOM, DENIES ANY PAIN. NO COMPLAINTS MADE. ALL SAFETY MEASURES IN PLACE.
[2021-09-10] VITALS: BP 104/49
--- NOTE | 2021-09-10 02:05 | NUR ---
MADE ROUNDS ON PT, PT IS ASLEEP. NO S/S OF DISTRESS. BREATHING IS EVEN AND UNLABORED. WILL CONTINUE TO MONITOR.
[2021-09-10 04:00] VITALS: BP 118/72
--- NOTE | 2021-09-10 04:15 | NUR ---
ASSISTED PT TO BATHROOM. NO S/S OF ANY DISTRESS. ASSISTED PT BACK TO BED. ALL SAFETY MEASURES IN PLACE.
[2021-09-10 06:41] LABS: BASOPHILS % (AUTO) 0.3 % (0.0-2.0); EOSINOPHILS % (AUTO) 0.8 % (0.0-4.0); HEMATOCRIT 33.2 % (36-48); HEMOGLOBIN 10.3 g/dL (12.0-16.0); LYMPHOCYTES # (AUTO) 0.4 K/uL (2.5-16.5); LYMPHOCYTES % (AUTO) 7.2 % (20.5-51.1); MEAN CORPUSCULAR HEMOGLOBIN 23 pg (27-31); MEAN CORPUSCULAR HGB CONC 31 g/dL (33-37); MEAN CORPUSCULAR VOLUME 73.4 fL (80-94); MONOCYTES # (AUTO) 0.7 K/uL (0.8-1.0); MONOCYTES % (AUTO) 12.3 % (1.7-9.3); NEUTROPHILS # (AUTO) 4.7 K/uL (1.8-7.7); NEUTROPHILS % (AUTO) 79.4 % (42.2-75.2); PLATELET COUNT (AUTO) 95 K/uL (140-450); RED BLOOD CELL COUNT(AUTO) 4.52 MIL/uL (4.20-5.40); RED CELL DISTRIBUTION WIDTH 33.6 % (11.6-13.7); WHITE BLOOD COUNT (AUTO) 5.9 K/uL (4.8-10.8)
[2021-09-10] MEDS: INSULIN LISPRO SLIDING SCALE 100 UNITS/ML VIAL SUBQ PRN ×2 (06:46→21:04)
[2021-09-10] MEDS: BLOOD GLUCOSE MONITORING 1 DEV DEV FS SCH ×4 (06:46→21:03)
--- NOTE | 2021-09-10 06:46 | NUR ---
BLOOD GLUCOSE CHECK WAS 262, ADMINISTERED INSULIN HUMALOG 6 UNITS SUBQ ORDERED. MEDICATION EDUCATION PROVIDED AND PT VERBALIZED UNDERSTANDING.
[2021-09-10 07:19] LABS: ALBUMIN 3.2 g/dL (3.4-5.0); ANION GAP 17.6 (8-16); ASPARTATE AMINOTRANSFERASE 24 U/L (15-37); CARBON DIOXIDE 22.6 mmol/L (21-32); CHLORIDE 102 mmol/L (98-107); CREATININE 1.2 mg/dL (0.6-1.3); GLUCOSE 262 mg/dL (74-106); POTASSIUM 4.2 mmol/L (3.5-5.1); SODIUM SERUM 138 mmol/L (136-145); TOTAL BILIRUBIN 1.4 mg/dL (0.0-1.0); UREA NITROGEN, BLOOD 26 mg/dL (7-18)
--- NOTE | 2021-09-10 07:30 | NUR ---
ENDORSED TO AM SHIFT NURSE FOR CONTINUITY OF CARE. PT IS STABLE.
--- NOTE | 2021-09-10 07:45 | NUR ---
RECEIVED REPORT FROM PM SHIFT NURSE FOR CONTINUITY OF CARE. PT IS AOX4. NO S/S OF DISTRESS, BREATHING IS EVEN AND UNLABORED. SKIN IS WARM, DRY AND NON-INTACT ON LEFT ELBOW. PT IS AMBULATORY. IV IS PATENT. CALL LIGHT WITHIN REACH. ALL SAFETY MEASURES IN PLACE.
[2021-09-10 08:00] VITALS: BP 117/73
[2021-09-10] MEDS: FERROUS GLUCONATE 324 MG TAB PO SCH ×2 (08:00→18:08)
--- NOTE | 2021-09-10 08:48 | NUR ---
PATIENT REFUSED INSULIN AND THE MEDS Addendum: 09/10/21 at 1947 by Inocente Barnes RN RN PATIENT REFUSED BS CHECK AND INSULIN.
[2021-09-10] MEDS: INSULIN LISPRO 100 UNITS/ML VIAL SUBQ SCH ×3 (09:00→18:10)
[2021-09-10] MEDS: levoFLOXacin 250 MG TAB PO SCH (09:02)
[2021-09-10] MEDS: PANTOPRAZOLE 40 MG TABEC PO SCH (09:03)
[2021-09-10] MEDS: GABAPENTIN 100 MG CAP PO SCH (09:04)
[2021-09-10] MEDS: DIGOXIN 0.125 MG TAB PO SCH (09:04)
[2021-09-10] MEDS: LACTULOSE 20 GM/30 ML UDC PO SCH (09:04)
[2021-09-10] MEDS: PROPRANOLOL 20 MG TAB PO SCH ×4 (09:05→18:08)
[2021-09-10] MEDS: DILTIAZEM 30 MG TAB PO SCH ×4 (11:11→18:08)
--- NOTE | 2021-09-10 11:30 | NUR ---
PT BS IS AT 308. GAVE INSULIN PER MD ORDER.
[2021-09-10 12:00] VITALS: BP 128/65
--- NOTE | 2021-09-10 13:00 | NUR ---
PT REFUSED ALL PO MEDS DUE TO HEART BURN PER PATIENT STATEMENT.
[2021-09-10] MEDS: ACETAMINOPHEN 325 MG TAB PO PRN (13:19)
[2021-09-10 16:00] VITALS: BP 122/77
--- NOTE | 2021-09-10 18:00 | NUR ---
PT BS IS AT 311. GAVE INSULIN PER MD ORDER.
--- NOTE | 2021-09-10 19:34 | NUR ---
ENDORSED TO NIGHT NURSE FOR CONTINUITY OF CARE. PT IS STABLE.
--- NOTE | 2021-09-10 19:35 | NUR ---
RECEIVED REPORT FROM AM SHIFT NURSE FOR CONTINUITY OF CARE. PT IS AWAKE, ALERT AND ORIENTED. ON RA WITH NO S/S OF DISTRESS, BREATHING IS EVEN AND UNLABORED. ABDOMEN IS FIRM AND DISTENDED. PT IS AMBULATORY. IV SITE ON RFA 20 G SALINE LOCK.CALL LIGHT WITHIN REACH.SAFETY MEASURES IN PLACE. WILL CONTINUE TO MONITOR.
[2021-09-10 20:00] VITALS: BP 125/67
--- NOTE | 2021-09-10 21:10 | NUR ---
PT BLOOD SUGAR AT 292. ADMINISTERED INSULIN PER MD ORDER. CALL LIGHT WITHIN REACH. WILL CONTINUE TO MONITOR.
--- NOTE | 2021-09-10 23:00 | NUR ---
ASSISTED PT TO THE BATHROOM. NO S/SX OF DISTRESS NOTED. CALL LIGHT WITHIN REACH. WILL CONTINUE TO MONITOR.
[2021-09-11] VITALS: BP 117/65
--- NOTE | 2021-09-11 02:30 | NUR ---
PT ASLEEP. VISIBLE CHEST RISE AND FALL NOTED. CALL LIGHT WITHIN REACH. WILL CONTINUE TO MONITOR.
[2021-09-11] MEDS: ACETAMINOPHEN 325 MG TAB PO PRN (02:47)
[2021-09-11 04:00] VITALS: BP 116/57
[2021-09-11] MEDS: BLOOD GLUCOSE MONITORING 1 DEV DEV FS SCH ×4 (06:37→21:00)
[2021-09-11] MEDS: INSULIN LISPRO SLIDING SCALE 100 UNITS/ML VIAL SUBQ PRN ×4 (06:37→22:13)
--- NOTE | 2021-09-11 07:31 | NUR ---
PT ENDORSED TO DAY SHIFT NURSE FOR CONTINUITY OF CARE. PT IN STABLE CONDITION.SIGNING OFF.
--- NOTE | 2021-09-11 07:32 | NUR ---
RECEIVED FROM HOSPITAL NURSE NURSE FOR CONTINUITY OF CARE. PT IN BED WITH HOB ELEVATED. AOX4, ABLE TO MAKE NEEDS KNOWN. NO C/O PAIN, NO SOB ON RA. LFA 20G ON SALINE LOCK. WITH LEFT ELBOW WOUND. AMBULATORY, BOWEL AND BLADDER CONTINENT. SAFETY AND STANDARD ISOLATION PRECAUTION OBSERVED. CALL LIGHT WITHIN REACH. WILL CONTINUE TO MONITOR.
[2021-09-11 08:00] VITALS: BP 118/66
[2021-09-11] MEDS: FERROUS GLUCONATE 324 MG TAB PO SCH ×2 (08:00→17:00)
[2021-09-11] MEDS: GABAPENTIN 100 MG CAP PO SCH (09:00)
[2021-09-11] MEDS: DILTIAZEM 30 MG TAB PO SCH ×3 (09:02→17:00)
[2021-09-11] MEDS: levoFLOXacin 250 MG TAB PO SCH (09:03)
[2021-09-11] MEDS: DIGOXIN 0.125 MG TAB PO SCH (09:03)
[2021-09-11] MEDS: LACTULOSE 20 GM/30 ML UDC PO SCH (09:03)
[2021-09-11] MEDS: PROPRANOLOL 20 MG TAB PO SCH ×3 (09:03→17:00)
[2021-09-11] MEDS: PANTOPRAZOLE 40 MG TABEC PO SCH (09:03)
--- NOTE | 2021-09-11 09:15 | NUR ---
due meds given tolerated well pt refused gabapentin. benefits of med explained but still refused
[2021-09-11] MEDS: INSULIN LISPRO 100 UNITS/ML VIAL SUBQ SCH ×3 (09:31→17:00)
--- NOTE | 2021-09-11 10:52 | NUR ---
pt sleeping in bed, no sob, flacc 0
[2021-09-11 12:00] VITALS: BP 122/69
--- NOTE | 2021-09-11 14:00 | NUR ---
SEEN BY DR FRIEND
--- NOTE | 2021-09-11 15:23 | NUR ---
PT RESTING IN BED, NO APPARENT DISTRESS, NO SOB
[2021-09-11 16:00] VITALS: BP 105/70
--- NOTE | 2021-09-11 18:19 | NUR ---
pt sitting in bed eating dinner, no c/o pain, no sob on room air
[2021-09-11 20:00] VITALS: BP_SYST 107; BP_SYST 118; BP_DIAS 62; BP_DIAS 66
--- NOTE | 2021-09-11 20:00 | NUR ---
PATIENT WAS RECEIVED AWAKE AND ALERT IN HER BED ASKING FOR WARM BLANKET, RN PROVIDED WARN BLANKET TO THE PATIENT
--- NOTE | 2021-09-11 22:00 | NUR ---
PATIENT IS AWAKE. ASSISTED TO USE THE RESTROOM.
--- NOTE | 2021-09-11 23:20 | NUR ---
EKG WAS PERFORMED. ABNORMAL FINDINGS REPORTED TO RN AND COPY WAS OBTAINED AND PLACED IN THE CHART.
[2021-09-12] VITALS: BP_SYST 106; BP_SYST 107; BP_DIAS 58; BP_DIAS 62
--- NOTE | 2021-09-12 | NUR ---
PATIENT IN BED SLEEPING WELL. HOB SLIGHTLY ELEVATED. BED IN LOW POSITION. CALL LIGHT WITHIN REACH.
[2021-09-12 04:00] VITALS: BP 119/61
[2021-09-12] MEDS: BLOOD GLUCOSE MONITORING 1 DEV DEV FS SCH ×4 (06:45→21:21)
[2021-09-12] MEDS: INSULIN LISPRO SLIDING SCALE 100 UNITS/ML VIAL SUBQ PRN (06:47)
--- NOTE | 2021-09-12 07:14 | NUR ---
ALL REPORTS GIVEN TO AM NURSE. TRANSFER OF CARE ENDORSED.
--- NOTE | 2021-09-12 07:30 | NUR ---
RECEIVED FROM PEOPLESOFT FINANCIAL DEVELOPER NURSE FOR CONTINUITY OF CARE. PT IN BED WITH HOB ELEVATED. AOX4, ABLE TO MAKE NEEDS KNOWN. NO C/O PAIN, NO SOB ON RA. RFA 20G ON SALINE LOCK. WITH LEFT ELBOW WOUND, DRESSING INTACT. AMBULATORY, BOWEL AND BLADDER CONTINENT. SAFETY AND STANDARD ISOLATION PRECAUTION OBSERVED. CALL LIGHT WITHIN REACH. WILL CONTINUE TO MONITOR.
[2021-09-12 08:00] VITALS: BP 113/59
[2021-09-12] MEDS: FERROUS GLUCONATE 324 MG TAB PO SCH ×2 (08:42→17:00)
[2021-09-12] MEDS: PROPRANOLOL 20 MG TAB PO SCH ×3 (08:42→17:00)
[2021-09-12] MEDS: DIGOXIN 0.125 MG TAB PO SCH (08:42)
[2021-09-12] MEDS: LACTULOSE 20 GM/30 ML UDC PO SCH (08:42)
[2021-09-12] MEDS: levoFLOXacin 250 MG TAB PO SCH (08:42)
[2021-09-12] MEDS: DILTIAZEM 30 MG TAB PO SCH ×3 (08:42→17:00)
[2021-09-12] MEDS: SPIRONOLACTONE 50 MG TAB PO SCH (08:42)
[2021-09-12] MEDS: FUROSEMIDE 40 MG TAB PO SCH (08:42)
[2021-09-12] MEDS: PANTOPRAZOLE 40 MG TABEC PO SCH (08:43)
[2021-09-12] MEDS: GABAPENTIN 100 MG CAP PO SCH (08:43)
--- NOTE | 2021-09-12 09:10 | NUR ---
DUE MEDS GIVEN
[2021-09-12] MEDS: INSULIN LISPRO 100 UNITS/ML VIAL SUBQ SCH ×3 (09:30→17:00)
[2021-09-12] MEDS ORDERED: SPIR50TA PO (10:56)
[2021-09-12] MEDS ORDERED: LACT10SO11 PO (10:56)
[2021-09-12] MEDS ORDERED: DILT-15 PO (10:56)
[2021-09-12] MEDS ORDERED: FURO40TA9 PO (10:56)
[2021-09-12] MEDS ORDERED: guaiFENesin 20 MG/ML UDC PO PRN (12:00)
--- NOTE | 2021-09-12 12:00 | NUR ---
PT WITH EPISODE OF COUGH LEADING TO SOB, AND RESTLESSNESS. DR PAZ NOTIFIED, ORDERED ROBITUSSIN PRN
[2021-09-12 13:00] VITALS: BP 174/87
--- NOTE | 2021-09-12 13:00 | NUR ---
AFIB RVR ON MONITOR HR 130-170, NOTIFIED DR PAZ. PAGED DR LYLE
--- NOTE | 2021-09-12 14:00 | NUR ---
SEEN AND EXAMINED BY DR LYLE. ORDERED A LOADING DOSE OF DIGOXIN
[2021-09-12] MEDS ORDERED: DIGOXIN 0.25 MG/ML AMP IV SCH (15:00)
--- NOTE | 2021-09-12 15:50 | NUR ---
DIGOXIN IVP GIVEN ORDERED. WILL MONITOR HR
[2021-09-12 16:00] VITALS: BP 99/58
--- NOTE | 2021-09-12 17:00 | NUR ---
PT EXPRESSED DESIRE TO GO HOME AMA, EXPLAINED TO FAMILY THE RISKS OF THIS ACTION. NURSE ALSO TALKED TO FAMILY AND EXPLAINED THE PLAN OF CARE. FAMILY CONVINCED PT TO ADHERE TO PLAN OF CARE. PT VERBALIZED AGREEMENT
--- NOTE | 2021-09-12 18:31 | NUR ---
PT RESTING IN BED AT THIS TIME, NO SOB, WITH C/O TOLERABLE ABD PAIN
[2021-09-12 20:00] VITALS: BP 102/59
[2021-09-12] MEDS: ZOLPIDEM 5 MG TAB PO PRN (21:21)
--- NOTE | 2021-09-12 23:34 | NUR ---
the patient was received from morning nurse , the patient stated that she wants to leave the hospital. her bp was 102/59 , NO SOB . no complain of pain . the patient stated that she can not sleep , she has insomnia. Ambien was given , the patient sleeps comfortable in her bed. comfort and safety measures were provided. bed is low position
[2021-09-13] VITALS: BP 99/56
[2021-09-13 04:24] VITALS: BP 101/50
--- NOTE | 2021-09-13 07:15 | NUR ---
RECEIVED BEDSIDE REPORT FROM ROAD MIXER OPERATOR RN. PATIENT IS RESTING IN BED. NO S/S OF DISTRESS. RESPIRATIONS EVEN AND UNLABORED. ALL SAFETY PRECAUTIONS IN PLACE.
[2021-09-13 08:00] VITALS: BP 95/44
[2021-09-13] MEDS: BLOOD GLUCOSE MONITORING 1 DEV DEV FS SCH ×4 (08:05→21:28)
[2021-09-13] MEDS: levoFLOXacin 250 MG TAB PO SCH (08:36)
[2021-09-13] MEDS: FERROUS GLUCONATE 324 MG TAB PO SCH ×2 (08:36→17:00)
[2021-09-13] MEDS: GABAPENTIN 100 MG CAP PO SCH (08:36)
[2021-09-13] MEDS: PANTOPRAZOLE 40 MG TABEC PO SCH (08:36)
[2021-09-13] MEDS: LACTULOSE 20 GM/30 ML UDC PO SCH ×3 (08:44→17:00)
[2021-09-13] MEDS: DILTIAZEM 30 MG TAB PO SCH ×3 (08:44→17:00)
[2021-09-13] MEDS: DIGOXIN 0.125 MG TAB PO SCH (08:48)
[2021-09-13] MEDS: PROPRANOLOL 20 MG TAB PO SCH ×2 (08:48→13:00)
--- NOTE | 2021-09-13 08:48 | NUR ---
ADMINISTERED SCHEDULED MEDICATIONS. PATIENT'S BLOOD SUGAR WAS 183 AT 0800. COVERED WITH 2 UNITS OF HUMALOG PER PRN SLIDING SCALE. PATIENT HAS SCHEDULED 6 UNITS OF HUMALOG ALSO DUE BUT THIS WAS HELD COVERAGE WAS ALREADY GIVEN. PATIENT'S BLOOD PRESSURE WAS 95/44 AND HEART RATE 114. HELD DIGOXIN AND PROPRANOLOL. WILL NOTIFY DR OF HELD MEDICATIONS. PATIENT VERBALIZED UNDERSTANDING. ALL SAFETY PRECAUTIONS IN PLACE.
[2021-09-13] MEDS: INSULIN LISPRO SLIDING SCALE 100 UNITS/ML VIAL SUBQ PRN ×3 (08:56→18:17)
[2021-09-13] MEDS: INSULIN LISPRO 100 UNITS/ML VIAL SUBQ SCH ×2 (08:56→13:00)
[2021-09-13] MEDS ORDERED: NACL 0.9% 1,000 ML IV SCH (11:10)
--- NOTE | 2021-09-13 11:15 | NUR ---
PATIENT'S BLOOD PRESSURE WAS LOW ~80/40. PER DR PAZ ORDER ADMINISTER 1 BOLUS AND CONTINUE TO MONITOR BLOOD PRESSURE.
[2021-09-13 12:00] VITALS: BP 90/46
--- NOTE | 2021-09-13 12:30 | NUR ---
NEW IV SITE OBTAINED AT LEFT WRIST 22G. IV IS DRY, PATENT, INTACT, AND RUNNING IVF BOLUS WELL. WILL CONTINUE TO MONITOR.
--- NOTE | 2021-09-13 12:45 | NUR ---
PATIENT'S BLOOD SUGAR WAS AT 242. COVERED WITH 4 UNITS OF HUMALOG PER SLIDING SCALE. PATIENT VERBALIZED UNDERSTANDING. ALL SAFETY PRECAUTIONS IN PLACE.
--- NOTE | 2021-09-13 14:49 | NUR ---
IV BOLUS OF 1L NS JUST FINISHED INFUSING. NS IS NOW RUNNING AT 100 ML/HR PER MD ORDER. PATIENT'S BP IS 89/61, HR 68.
[2021-09-13 16:00] VITALS: BP 124/64
[2021-09-13] MEDS ORDERED: PROPRANOLOL 20 MG TAB PO SCH (18:00)
[2021-09-13] MEDS: INSULIN LANTUS 100 UNITS/ML 10 ML VIAL SUBQ SCH (21:30)
[2021-09-13] MEDS: ZOLPIDEM 5 MG TAB PO PRN (23:01)
[2021-09-13 23:14] VITALS: BP 112/65
--- NOTE | 2021-09-14 00:01 | NUR ---
the patient vitals are stable ,. bp is 108/56. breathing is even and unlabored she has episodes of insomnia , ambien was given . she sleep comfortable in her bed . comfort and safety measures were provided
[2021-09-14 03:57] VITALS: BP 105/62
[2021-09-14 05:12] LABS: BASOPHILS % (AUTO) 0.1 % (0.0-2.0); EOSINOPHILS # (AUTO) 1.4 K/uL (0-0.4); EOSINOPHILS % (AUTO) 6.8 % (0.0-4.0); HEMATOCRIT 32.3 % (36-48); HEMOGLOBIN 9.8 g/dL (12.0-16.0); LYMPHOCYTES # (AUTO) 0.2 K/uL (2.5-16.5); LYMPHOCYTES % (AUTO) 0.8 % (20.5-51.1); MEAN CORPUSCULAR HEMOGLOBIN 24 pg (27-31); MEAN CORPUSCULAR HGB CONC 30 g/dL (33-37); MONOCYTES # (AUTO) 0.9 K/uL (0.8-1.0); MONOCYTES % (AUTO) 4.3 % (1.7-9.3); NEUTROPHILS # (AUTO) 18.3 K/uL (1.8-7.7); PLATELET COUNT (AUTO) 45 K/uL (140-450); RED BLOOD CELL COUNT(AUTO) 4.14 MIL/uL (4.20-5.40); RED CELL DISTRIBUTION WIDTH 33.6 % (11.6-13.7); WHITE BLOOD COUNT (AUTO) 20.8 K/uL (4.8-10.8)
[2021-09-14 05:32] LABS: ANION GAP 15.6 (8-16); CARBON DIOXIDE 22.4 mmol/L (21-32); CHLORIDE 103 mmol/L (98-107); CREATININE 2.6 mg/dL (0.6-1.3); GLUCOSE 193 mg/dL (74-106); SODIUM SERUM 135 mmol/L (136-145); UREA NITROGEN, BLOOD 46 mg/dL (7-18)
[2021-09-14 05:35] LABS: MAGNESIUM 1.9 mg/dL (1.8-2.4); PHOSPHORUS 4.7 mg/dL (2.5-4.9)
[2021-09-14] MEDS: BLOOD GLUCOSE MONITORING 1 DEV DEV FS SCH ×4 (07:30→21:09)
--- NOTE | 2021-09-14 07:30 | NUR ---
RECEIVED REPORT FROM MANAGER MARITIME RN FOR CONTINUITY OF CARE. PATIENT IS RESTING IN BED. RESPIRATIONS EVEN AND UNLABORED ON ROOM AIR. NO S/S OF DISTRESS. ALL SAFETY PRECAUTIONS IN PLACE.
[2021-09-14 08:00] VITALS: BP 101/55
[2021-09-14] MEDS: INSULIN LISPRO SLIDING SCALE 100 UNITS/ML VIAL SUBQ PRN ×4 (08:40→21:13)
[2021-09-14] MEDS: DILTIAZEM 30 MG TAB PO SCH ×3 (09:00→17:31)
[2021-09-14] MEDS: PROPRANOLOL 20 MG TAB PO SCH ×3 (09:00→17:37)
[2021-09-14] MEDS ORDERED: SODIUM ZIRCONIUM CYCLOSILICATE 10 GM POWD.PACK PO SCH ×2 (09:00→10:28)
[2021-09-14] MEDS ORDERED: PROPRANOLOL 20 MG TAB PO SCH (09:00)
[2021-09-14] MEDS: SPIRONOLACTONE 50 MG TAB PO SCH (09:00)
[2021-09-14] MEDS ORDERED: DIGO0.122 PO (09:03)
[2021-09-14] MEDS ORDERED: PROP20TA29 PO (09:03)
[2021-09-14] MEDS: GABAPENTIN 100 MG CAP PO SCH (09:13)
[2021-09-14] MEDS: levoFLOXacin 250 MG TAB PO SCH (09:14)
[2021-09-14] MEDS: PANTOPRAZOLE 40 MG TABEC PO SCH (09:14)
[2021-09-14] MEDS: LACTULOSE 20 GM/30 ML UDC PO SCH ×3 (09:14→17:36)
[2021-09-14] MEDS: FUROSEMIDE 40 MG TAB PO SCH (09:14)
[2021-09-14] MEDS: FERROUS GLUCONATE 324 MG TAB PO SCH ×2 (09:24→17:36)
[2021-09-14] MEDS: NACL 0.9% 1,000 ML IV SCH ×2 (09:25→22:47)
[2021-09-14] MEDS: DIGOXIN 0.125 MG TAB PO SCH (09:25)
--- NOTE | 2021-09-14 09:25 | NUR ---
ADMINISTERED SCHEDULED MEDICATIONS. BP 96/60 AND HR ~90s. HELD PROPRANOLOL AND SPIRONOLACTONE BUT DIGOXIN WAS GIVEN. PATIENT DID WELL WITH BREAKFAST. PT ALSO AT BEDSIDE FOR ASSESSMENT. PATIENT USED WALKER WITH ASSISTANCE FROM PT TO WALK TO RESTROOM. TOLERANCE IS FAIR. PATIENT VERBALIZED UNDERSTANDING FOR MEDICATIONS. NO S/S OF DISTRESS. ALL SAFETY PRECAUTIONS IN PLACE.
--- NOTE | 2021-09-14 10:25 | NUR ---
PATIENT'S BP AT MEDICATION ADMINISTRATION WAS 101/55, ~ HR 80-105 @1025 BP IS 96/60 AND HR ~80-90
[2021-09-14 12:00] VITALS: BP 97/55
--- NOTE | 2021-09-14 12:17 | NUR ---
PATIENT'S BLOOD SUGAR WAS 276. ADMINISTERED 6 UNITS PER PRN SLIDING SCALE. PATIENT VERBALIZED UNDERSTANDING. ALL SAFETY PRECAUTIONS IN PLACE.
--- NOTE | 2021-09-14 13:35 | NUR ---
ADMINISTERED SCHEDULED MEDICATIONS. PATIENT'S BP: 110/62, HR: 118. HELD DILTIAZEM BUT GAVE PROPRANOLOL 10MG. PATIENT VERBALIZED UNDERSTANDING. ALL SAFETY PRECAUTIONS IN PLACE.
--- NOTE | 2021-09-14 13:55 | NUR ---
09/14/21 RD FOLLOW UP COMPLETED PLEASE REFER TO NUTRITION ASSESSMENT UNDER CARE ACTIVITY FOR ESTIMATED NUTRITIONAL NEEDS. 1.RECOMMEND CCHO + MECHANICAL SOFT DIET DUE TO CHEWING DIFFICULTY 2.RECOMMEND GLUCERNA 1X DAY -THIS PROVIDES 220 KCALS AND 10 GM PROTEIN 3.RD TO FOLLOW-UP 3-5 DAYS, MODERATE RISK HEREVIEWED BY MARCIA EPPS RD
--- NOTE | 2021-09-14 15:30 | NUR ---
ASSISTED PATIENT TO RESTROOM. PATIENT URINATED AND 1 BM NOTED. ASSISTED PATIENT IN SPONGE BATH AND HELPED HER BACK TO BED. SHE IS RESTING IN BED. NO S/S OF DISTRESS. ALL SAFETY PRECAUTIONS IN PLACE.
[2021-09-14 16:00] VITALS: BP 108/66
--- NOTE | 2021-09-14 16:15 | NUR ---
NOTIFIED DR PAZ AND DR ALVARADO OF PATIENT'S HIGH DIGOXIN LEVEL. DIGOXIN DC'D PER PHARMACY. DR'S ARE AWARE.
[2021-09-14 16:41] LABS: ANION GAP 15.1 (8-16); CARBON DIOXIDE 22.5 mmol/L (21-32); CHLORIDE 101 mmol/L (98-107); CREATININE 2.6 mg/dL (0.6-1.3); GLUCOSE 279 mg/dL (74-106); POTASSIUM 5.6 mmol/L (3.5-5.1); SODIUM SERUM 133 mmol/L (136-145); UREA NITROGEN, BLOOD 56 mg/dL (7-18)
--- NOTE | 2021-09-14 16:47 | NUR ---
PATIENT SITTING AT BEDSIDE. NO S/S OF DISTRESS. ALL SAFETY PRECAUTIONS IN PLACE.
--- NOTE | 2021-09-14 19:30 | NUR ---
ENDORSED PATIENT TO GUIDANCE CONSULTANT RN FOR CONTINUITY OF CARE. PATIENT IS STABLE.
[2021-09-14] MEDS ORDERED: VANCOMYCIN PER PHARMACY MC PRN (21:10)
[2021-09-14] MEDS: INSULIN LANTUS 100 UNITS/ML 10 ML VIAL SUBQ SCH (21:11)
[2021-09-14] MEDS ORDERED: VANCOMYCIN 1GM/DEXT 5% PREMIX 200 ML IV SCH (21:20)
[2021-09-14] MEDS: ZOLPIDEM 5 MG TAB PO PRN (21:29)
[2021-09-14 22:11] VITALS: BP 110/68
--- NOTE | 2021-09-14 22:12 | NUR ---
the patient vitasl are stabel no sob . no complain of pain , HR is 101. bp is normal. breathing is even and unlabored. she ate 25% of her dinner , she had insomnia and ambien was given . bs 267 insulin was given . sched meds are administered. no complain of pain . comfort and safety measures are provided.
[2021-09-14] MEDS ORDERED: VANCOMYCIN 1,000 MG VIAL ONE (22:36)
[2021-09-15 04:02] VITALS: BP 120/71
[2021-09-15 06:19] LABS: ANION GAP 15.6 (8-16); CARBON DIOXIDE 21.6 mmol/L (21-32); CHLORIDE 103 mmol/L (98-107); CREATININE 2.4 mg/dL (0.6-1.3); GLUCOSE 327 mg/dL (74-106); POTASSIUM 5.2 mmol/L (3.5-5.1); SODIUM SERUM 135 mmol/L (136-145); UREA NITROGEN, BLOOD 60 mg/dL (7-18)
[2021-09-15 06:29] LABS: BASOPHILS % (AUTO) 0.2 % (0.0-2.0); EOSINOPHILS # (AUTO) 0.2 K/uL (0-0.4); EOSINOPHILS % (AUTO) 1.1 % (0.0-4.0); HEMATOCRIT 35.7 % (36-48); LYMPHOCYTES # (AUTO) 0.3 K/uL (2.5-16.5); LYMPHOCYTES % (AUTO) 1.7 % (20.5-51.1); MEAN CORPUSCULAR HEMOGLOBIN 24 pg (27-31); MEAN CORPUSCULAR HGB CONC 31 g/dL (33-37); MEAN CORPUSCULAR VOLUME 76.3 fL (80-94); MONOCYTES % (AUTO) 5.7 % (1.7-9.3); NEUTROPHILS # (AUTO) 16.1 K/uL (1.8-7.7); NEUTROPHILS % (AUTO) 91.3 % (42.2-75.2); PLATELET COUNT (AUTO) 69 K/uL (140-450); RED BLOOD CELL COUNT(AUTO) 4.67 MIL/uL (4.20-5.40); RED CELL DISTRIBUTION WIDTH 33.7 % (11.6-13.7)
[2021-09-15 06:43] LABS: MAGNESIUM 2.2 mg/dL (1.8-2.4); PHOSPHORUS 3.6 mg/dL (2.5-4.9)
[2021-09-15] MEDS: BLOOD GLUCOSE MONITORING 1 DEV DEV FS SCH ×4 (07:12→21:16)
--- NOTE | 2021-09-15 07:15 | NUR ---
RECEIVED PATIENT FROM HEEL SEAM RUBBER NURSE FOR CONTINUITY OF CARE. PATIENT IS AWAKE, ALERT, RESTING IN BED. RESPIRATORY EVEN AND UNLABORED, ON ROOM AIR. NO SIGN OF DISTRESS NOTED. SKIN WARM, DRY, NON DIAPHORETIC. SKIN TEAR NOTED ON LEFT ELBOW. IV ON RIGHT AC 18G, INTACT AND PATENT, SALINE LOCK. IV ON LEFT WRIST 22G, INTACT AND PATENT, IS INFUSING FLUID ORDER. ABDOMEN DISTENDED, NON TENDER. PATIENT ABLE TO AMBULATE WITH ASSISTANCE. DENIES ANY PAIN OR DISCOMFORT. ABLE TO MAKE NEED KNOWN. PLAN OF CARE DISCUSSED. PRECAUTION IN PLACE. CALL LIGHT WITHIN REACH. WILL CONTINUE TO MONITOR.
[2021-09-15 07:22] LABS: WHITE BLOOD COUNT (AUTO) 17.6 K/uL (4.8-10.8)
[2021-09-15 08:00] VITALS: BP 116/66
[2021-09-15] MEDS ORDERED: SODIUM ZIRCONIUM CYCLOSILICATE 10 GM POWD.PACK PO SCH (08:30)
[2021-09-15] MEDS: LACTULOSE 20 GM/30 ML UDC PO SCH ×3 (08:38→14:23)
[2021-09-15] MEDS: PROPRANOLOL 20 MG TAB PO SCH ×3 (08:39→16:56)
[2021-09-15] MEDS: PANTOPRAZOLE 40 MG TABEC PO SCH (08:41)
[2021-09-15] MEDS: levoFLOXacin 250 MG TAB PO SCH (08:42)
[2021-09-15] MEDS: GABAPENTIN 100 MG CAP PO SCH (08:42)
[2021-09-15] MEDS: DILTIAZEM 30 MG TAB PO SCH ×3 (08:43→17:05)
[2021-09-15] MEDS: FERROUS GLUCONATE 324 MG TAB PO SCH ×2 (08:47→17:05)
--- NOTE | 2021-09-15 08:47 | NUR ---
SCHEDULE MEDICATIONS GIVEN WITH EDUCATION. PATIENT VERBALIZED UNDERSTANDING. PATIENT TOLERATED WELL. NO SIGN OF DISTRESS NOTED. PRECAUTION IN PLACE. CALL LIGHT WITHIN REACH. WILL CONTINUE TO MONITOR.
--- NOTE | 2021-09-15 10:00 | NUR ---
ASSIST PATIENT AMBULATE TO BATHROOM. PATIENT TOLERATED WELL. NO SIGN OF DISTRESS NOTED. WILL CONTINUE TO MONITOR.
[2021-09-15 12:00] VITALS: BP 114/57
[2021-09-15] MEDS: INSULIN LISPRO SLIDING SCALE 100 UNITS/ML VIAL SUBQ PRN ×3 (12:15→21:00)
--- NOTE | 2021-09-15 12:15 | NUR ---
BLOOD SUGAR CHECK 359, 10 UNITS INSULIN GIVEN, SCHEDULE MEDICATION GIVEN WITH EDUCATION. PATIENT TOLERATED WELL. NO SIGN OF DISTRESS NOTED. PRECAUTION IN PLACE. CALL LIGHT WITHIN REACH. WILL CONTINUE TO MONITOR.
[2021-09-15] MEDS: NACL 0.9% 1,000 ML IV SCH (13:06)
--- NOTE | 2021-09-15 14:24 | NUR ---
LACTULOSE SCHEDULE WAS NOT GIVEN DUE TO TOO CLOSE TO SCHEDULE DOSE WAS GIVEN @ 1218.
[2021-09-15 16:00] VITALS: BP 121/62
--- NOTE | 2021-09-15 16:57 | NUR ---
HOLD PROPRANOLOL 10MG PER PARAMETER, BP 111/60, HR 79.
--- NOTE | 2021-09-15 17:02 | NUR ---
BLOOD SUGAR CHECK 358, 10 UNITS INSULIN GIVEN. SCHEDULE MEDICATION GIVEN WITH EDUCATION. PATIENT VERBALIZED UNDERSTANDING. PATIENT TOLERATED WELL. PRECAUTION IN PLACE. CALL LIGHT WITHIN REACH. WILL CONTINUE TO MONITOR.
--- NOTE | 2021-09-15 19:36 | NUR ---
ENDORSED PATIENT TO DETAILER SCHOOL PHOTOGRAPHS NURSE FOR CONTINUITY OF CARE. PATIENT IS STABLE.
--- NOTE | 2021-09-15 19:37 | NUR ---
RECEIVED REPORT FROM AM SHIFT NURSE FOR CONTINUITY OF CARE. PT IS AWAKE AND ALERT, AMBULATORY. NO S/S OF DISTRESS. RESPIRATIONS IS EVEN AND UNLABORED ON RA. SKIN IS WARM DRY, NOTED SKIN TEAR ON LEFT ELBOW WITH DRESSING IN PLACE. IV ON R AC G 18 RUNNING NS@70MLS/HR. ABDOMEN DISTENDED, NON TENDER. CALL LIGHT WITHIN REACH. ALL SAFETY MEASURES IN PLACE. WILL CONTINUE TO MONITOR.
[2021-09-15 20:00] VITALS: BP 114/55
[2021-09-15] MEDS: INSULIN LANTUS 100 UNITS/ML 10 ML VIAL SUBQ SCH (20:59)
--- NOTE | 2021-09-15 21:16 | NUR ---
BLOOD GLUCOSE CHECK 300, ADMINISTERED INSULIN ORDERED. PT TOLERATED IT WELL. WILL CONTINUE TO MONITOR.
--- NOTE | 2021-09-15 23:20 | NUR ---
CHECKED ON PT, AWAKE IN BED. NO S/S OF DISTRESS. ASSISTED PT TO BATHROOM. NO COMPLAINTS MADE. ALL SAFETY PRECAUTIONS IN PLACE.
[2021-09-16] VITALS: BP 111/54
--- NOTE | 2021-09-16 02:05 | NUR ---
MADE ROUNDS ON PT, ASLEEP. BREATHING IS EVEN AND UNLABORED. ALL SAFETY MEASURES IN PLACE.
[2021-09-16] MEDS: NACL 0.9% 1,000 ML IV SCH ×2 (03:25→16:09)
[2021-09-16 04:00] VITALS: BP 110/67
--- NOTE | 2021-09-16 04:15 | NUR ---
ASSISTED PT TO BATHROOM. NO S/S OF DISTRESS. NO COMPLAINTS MADE. WILL CONTINUE TO MONITOR.
[2021-09-16 05:35] LABS: BASOPHILS % (AUTO) 0.2 % (0.0-2.0); EOSINOPHILS # (AUTO) 0.1 K/uL (0-0.4); EOSINOPHILS % (AUTO) 0.5 % (0.0-4.0); HEMATOCRIT 33.7 % (36-48); HEMOGLOBIN 10.6 g/dL (12.0-16.0); LYMPHOCYTES # (AUTO) 0.4 K/uL (2.5-16.5); LYMPHOCYTES % (AUTO) 2.9 % (20.5-51.1); MEAN CORPUSCULAR HEMOGLOBIN 24 pg (27-31); MEAN CORPUSCULAR HGB CONC 31 g/dL (33-37); MONOCYTES # (AUTO) 1.1 K/uL (0.8-1.0); NEUTROPHILS # (AUTO) 13.5 K/uL (1.8-7.7); NEUTROPHILS % (AUTO) 89.4 % (42.2-75.2); PLATELET COUNT (AUTO) 65 K/uL (140-450); RED BLOOD CELL COUNT(AUTO) 4.44 MIL/uL (4.20-5.40); WHITE BLOOD COUNT (AUTO) 15.1 K/uL (4.8-10.8)
[2021-09-16 05:36] LABS: ANION GAP 16.3 (8-16); CARBON DIOXIDE 20.6 mmol/L (21-32); CHLORIDE 103 mmol/L (98-107); CREATININE 2.1 mg/dL (0.6-1.3); GLUCOSE 331 mg/dL (74-106); POTASSIUM 4.9 mmol/L (3.5-5.1); SODIUM SERUM 135 mmol/L (136-145)
[2021-09-16 05:43] LABS: MAGNESIUM 2.1 mg/dL (1.8-2.4); PHOSPHORUS 2.9 mg/dL (2.5-4.9)
[2021-09-16 05:58] LABS: UREA NITROGEN, BLOOD 64 mg/dL (7-18)
--- NOTE | 2021-09-16 06:20 | NUR ---
PT ASLEEP, RESPIRATIONS EVEN AND UNLABORED. CALL LIGHT WITHIN REACH. ALL SAFETY PRECAUTIONS IN PLACE.
[2021-09-16] MEDS: BLOOD GLUCOSE MONITORING 1 DEV DEV FS SCH ×4 (07:51→21:00)
[2021-09-16] MEDS: INSULIN LISPRO SLIDING SCALE 100 UNITS/ML VIAL SUBQ PRN ×4 (07:51→22:04)
--- NOTE | 2021-09-16 07:53 | NUR ---
ENDORSED TO AM SHIFT FOR CONTINUITY FOR CARE. PT IS STABLE.
--- NOTE | 2021-09-16 07:54 | NUR ---
RECEIVED PATIENT FROM HOOKMAN NURSE FOR CONTINUITY OF CARE. PATIENT IS AWAKE, ALERT,AX3 RESTING IN BED. RESPIRATORY EVEN AND UNLABORED, ON ROOM AIR. NO SIGN OF DISTRESS NOTED. SKIN WARM, DRY, NON DIAPHORETIC. SKIN TEAR NOTED ON LEFT ELBOW. IV IS LEAKING WILL TRY TO REPLACE . ABDOMEN DISTENDED, NON TENDER. PATIENT ABLE TO AMBULATE WITH ASSISTANCE. DENIES ANY PAIN OR DISCOMFORT. ABLE TO MAKE NEED KNOWN. PLAN OF CARE DISCUSSED. PRECAUTION IN PLACE. CALL LIGHT WITHIN REACH.
[2021-09-16 08:00] VITALS: BP 116/69
[2021-09-16] MEDS ORDERED: VANCOMYCIN 1,000 MG in DEXTROSE 5% 250 ML IV SCH (08:00)
[2021-09-16] MEDS: PANTOPRAZOLE 40 MG TABEC PO SCH (08:27)
[2021-09-16] MEDS: levoFLOXacin 250 MG TAB PO SCH (08:27)
[2021-09-16] MEDS: DILTIAZEM 30 MG TAB PO SCH ×3 (08:27→16:09)
[2021-09-16] MEDS: FERROUS GLUCONATE 324 MG TAB PO SCH ×2 (08:28→16:09)
[2021-09-16] MEDS: PROPRANOLOL 20 MG TAB PO SCH ×3 (08:28→16:09)
[2021-09-16] MEDS: LACTULOSE 20 GM/30 ML UDC PO SCH (08:29)
--- NOTE | 2021-09-16 10:07 | NUR ---
PT IN BED NO COMPLAINS, ATE BREAKFAST GOT MORNING MEDICATION ADMINISTRATED TOLERATED WELL, NO SOD NOTED, ALL SAFETY MEASURES ON PLACE CALLS LIGHT WITHIN REACH
--- NOTE | 2021-09-16 11:52 | NUR ---
SPOKE WITH AISHA FROM [facility], [facility] WILL CALL FOR ETA. SARINA-JESSA MADE AWARE.
--- NOTE | 2021-09-16 12:15 | NUR ---
PT IN BED NO COMPLAINS, ATE BREAKFAST GOT MORNING MEDICATION ADMINISTRATED TOLERATED WELL, NO SOD NOTED, PATIENT HAS NO IV AT THIS TIME, PATIENT PULLED IT OUT, TRIED TO INSERT ONE WAS NOT SUCCESSFUL, NURSE ZULEYMA HARDWICK TRIED TO INSERT ONE TWICE WAS NOT SUCCESSFUL , INFORMED DR VIDA WORKMAN , HE ORDER MIDLINE, PT SIGNED CONSENT, [facility]IC[facility] WERE CALLED, THEY WILL CALL LATER FOR ESTIMATED TIME .ALL SAFETY MEASURES ON PLACE CALLS LIGHT WITHIN REACH
[2021-09-16 12:22] VITALS: BP 110/48
--- NOTE | 2021-09-16 12:58 | NUR ---
PT IN BED NO COMPLAINS NO SOD NOTED, PROPRANOLOL WAS HOLDED DUE TO BLOOD PRESSURE DIASTOLIC LESS THAN 60 ALL SAFETY MEASURES ON PLACE CALLS LIGHT WITHIN REACH
--- NOTE | 2021-09-16 14:45 | NUR ---
PT IN BED NO COMPLAINS NO SOD NOTED, MIDLINE WAS INSERTED BY PICC LINE NURSE, FLUSHED , BLOOD RETURN NOTED, PT RECEIVING FLUIDS ALL SAFETY MEASURES ON PLACE CALLS LIGHT WITHIN REACH
--- NOTE | 2021-09-16 15:56 | NUR ---
PT IN BED NO COMPLAINS NO SOD NOTED, ALL SAFETY MEASURES ON PLACE CALLS LIGHT WITHI REACH
[2021-09-16 16:00] VITALS: BP 110/44
--- NOTE | 2021-09-16 17:51 | NUR ---
PT IN BED NO COMPLAINS NO SOD NOTED, ALL SAFETY MEASURES ON PLACE CALLS LIGHT WITHIN REACH
--- NOTE | 2021-09-16 19:31 | NUR ---
FULL BEDSIDE REPORT GIVEN TO COMPUTER INSTRUCTOR NURSE
--- NOTE | 2021-09-16 19:32 | NUR ---
RECEIVED REPORT FROM AM NURSE. PATIENT IS RESTING. NO S/S OF RESPIRATORY DISTRESS. RESPIRATION EVEN UNLABORED SKIN WARM AND DRY TO THE TOUCH. IVF NS INFUSING AT 70 ML. ALL SAFETY PRECAUTIONS ARE IN PLACE. CALL LIGHT WITHIN REACH
[2021-09-16 20:00] VITALS: BP 136/63
[2021-09-16] MEDS: INSULIN LANTUS 100 UNITS/ML 10 ML VIAL SUBQ SCH (21:00)
--- NOTE | 2021-09-16 22:04 | NUR ---
BLOOD GLUCOSE CHECKED 319 ADMINISTERED HUMALOG ORDERED PER SLIDING SCALE. ATTENDED PATIENT NEEDS.
--- NOTE | 2021-09-16 22:15 | NUR ---
ASSISTED PATIENT TO THE RESTROOM. NEEDS ATTENDED TO.
[2021-09-17] VITALS: BP 153/60
--- NOTE | 2021-09-17 03:14 | NUR ---
ROUNDING PATIENT, PT IS SLEEPING. NO DISTRESS NOTED. CALL LIGHT WITHIN REACH.
[2021-09-17 04:00] VITALS: BP 113/57
[2021-09-17] MEDS: NACL 0.9% 1,000 ML IV SCH ×2 (06:49→07:19)
--- NOTE | 2021-09-17 06:50 | NUR ---
BLOOD GLUCOSE CHECKED 200. WILL ENDORSE TO AM SHIFT NURSE FOR COVERAGE.
[2021-09-17 07:04] LABS: HEMATOCRIT 35.6 % (36-48); HEMOGLOBIN 11.2 g/dL (12.0-16.0); MEAN CORPUSCULAR HEMOGLOBIN 24 pg (27-31); MEAN CORPUSCULAR HGB CONC 31 g/dL (33-37); MEAN CORPUSCULAR VOLUME 75.9 fL (80-94); PLATELET COUNT (AUTO) 49 K/uL (140-450); RED BLOOD CELL COUNT(AUTO) 4.68 MIL/uL (4.20-5.40); RED CELL DISTRIBUTION WIDTH 32.8 % (11.6-13.7); WHITE BLOOD COUNT (AUTO) 11.4 K/uL (4.8-10.8)
[2021-09-17 07:30] LABS: ANION GAP 15.4 (8-16); CARBON DIOXIDE 22.3 mmol/L (21-32); CHLORIDE 105 mmol/L (98-107); GLUCOSE 212 mg/dL (74-106); POTASSIUM 4.7 mmol/L (3.5-5.1); SODIUM SERUM 138 mmol/L (136-145)
[2021-09-17] MEDS: BLOOD GLUCOSE MONITORING 1 DEV DEV FS SCH ×4 (07:30→21:00)
--- NOTE | 2021-09-17 07:31 | NUR ---
ENDORSED TO AM SHIFT NURSE FOR CONTINUITY OF CARE. PATIENT IS STABLE.
--- NOTE | 2021-09-17 07:35 | NUR ---
RECEIVED PT FROM NIGHT RN, PT IS AWAKE AND LYING ON THE BED WITH SIDE RAILS UP AND CALL LIGHT WITHIN REACH, PT HAS A DEVIN MIDLINE DOUBLE LUMEN WITH NS INFUSING AT 70ML/HR, PATENT, PT IS ON JENA, SAFETY PRECAUTION ENFORCED, ASCITES NOTED, NO SIGN OF DISTRESS NOTED AND WILL CONTINUE TO MONITOR PT.
[2021-09-17 07:37] LABS: VANCOMYCIN,RANDOM 10.8 ug/ml
[2021-09-17 07:39] LABS: MAGNESIUM 2.2 mg/dL (1.8-2.4); PHOSPHORUS 3.1 mg/dL (2.5-4.9)
[2021-09-17 08:00] VITALS: BP 120/78
[2021-09-17 08:10] LABS: UREA NITROGEN, BLOOD 67 mg/dL (7-18)
[2021-09-17] MEDS: DILTIAZEM 30 MG TAB PO SCH ×4 (09:00→17:21)
[2021-09-17] MEDS: LACTULOSE 20 GM/30 ML UDC PO SCH (09:14)
[2021-09-17] MEDS: levoFLOXacin 250 MG TAB PO SCH (09:14)
[2021-09-17] MEDS: PANTOPRAZOLE 40 MG TABEC PO SCH (09:15)
[2021-09-17] MEDS: FERROUS GLUCONATE 324 MG TAB PO SCH ×2 (09:21→17:21)
[2021-09-17] MEDS: PROPRANOLOL 20 MG TAB PO SCH ×4 (09:22→17:22)
[2021-09-17 09:44] LABS: BASOPHILS % (MANUAL) 0 % (0-2); EOSINOPHILS % (MANUAL) 0 % (0-4); LYMPHOCYTES % (MANUAL) 6 % (20-46); MONOCYTES % (MANUAL) 6 % (5-12)
--- NOTE | 2021-09-17 09:45 | NUR ---
PT WAS ASSISTED TO THE BATHROOM AND BACK TO BED.
[2021-09-17] MEDS: INSULIN LISPRO SLIDING SCALE 100 UNITS/ML VIAL SUBQ PRN ×4 (09:46→23:14)
[2021-09-17] MEDS ORDERED: VANCOMYCIN 1,000 MG in DEXTROSE 5% 250 ML IV SCH (10:00)
[2021-09-17 12:00] VITALS: BP 115/70
--- NOTE | 2021-09-17 12:45 | NUR ---
PT WAS ASSISTED FOR HER LUNCH TRAY AND WAS MEDICATED WITH INSULIN.
[2021-09-17 12:54] LABS: PROTHROMBIN TIME 14.4 secs (10.8-13.4)
--- NOTE | 2021-09-17 14:20 | NUR ---
PT WAS ASSISTED TO MUSE THE BATHROOM AND PT MADE A BOWEL MOVEMENT, WAS INFORMED OF THE PARACENTESIS TO BE DONE TODAY.
[2021-09-17 16:00] VITALS: BP 104/49
--- NOTE | 2021-09-17 16:20 | NUR ---
PT HAD A PARACENTESIS DONE TODAY, 7200 OUTPUT. PT VERBALIZED SHE FELT RELIEF.
--- NOTE | 2021-09-17 19:40 | NUR ---
ENDORSED PT TO NIGHT RN FOR CONTINUITY OF CARE.
[2021-09-17 20:00] VITALS: BP 115/62
[2021-09-17] MEDS: INSULIN LANTUS 100 UNITS/ML 10 ML VIAL SUBQ SCH (21:00)
[2021-09-18] VITALS: BP 120/51
--- NOTE | 2021-09-18 01:28 | NUR ---
PATIENT AWAKE ALERT X3 RESTING IN BED NO C/O OF PAIN UP TO BATH ROOM WITH ASSISTANCE. ON MONITOR A-FIB HEART RATE 111. HAS RIGHT UPPER MID LINE INFUSING N.S 70 HOUR. BLOOD SUGAR 285 COVERED WITH 6 UNITS OF HUMALOG S.G LANTUS 20 UNITS S.Q. LUNGS DIMINISH TO LISTEN .TEMP 97.9 ABDOMEN STILL DISTENDED SOFT TO TOUCH. SKIN INTACT. NO DISTRESS NOTED.
[2021-09-18] MEDS: NACL 0.9% 1,000 ML IV SCH ×2 (03:30→12:19)
[2021-09-18 04:00] VITALS: BP 118/79
[2021-09-18 06:24] LABS: BASOPHILS % (AUTO) 0.1 % (0.0-2.0); EOSINOPHILS % (AUTO) 0.6 % (0.0-4.0); HEMATOCRIT 34.1 % (36-48); HEMOGLOBIN 10.9 g/dL (12.0-16.0); LYMPHOCYTES # (AUTO) 0.3 K/uL (2.5-16.5); MEAN CORPUSCULAR HEMOGLOBIN 24 pg (27-31); MEAN CORPUSCULAR HGB CONC 32 g/dL (33-37); MONOCYTES # (AUTO) 0.7 K/uL (0.8-1.0); MONOCYTES % (AUTO) 7.8 % (1.7-9.3); NEUTROPHILS # (AUTO) 7.6 K/uL (1.8-7.7); PLATELET COUNT (AUTO) 37 K/uL (140-450); RED BLOOD CELL COUNT(AUTO) 4.49 MIL/uL (4.20-5.40); RED CELL DISTRIBUTION WIDTH 32.7 % (11.6-13.7); WHITE BLOOD COUNT (AUTO) 8.6 K/uL (4.8-10.8)
[2021-09-18 07:01] LABS: MAGNESIUM 2.2 mg/dL (1.8-2.4); PHOSPHORUS 3.1 mg/dL (2.5-4.9)
--- NOTE | 2021-09-18 07:16 | NUR ---
RECEIVED PT FROM CONTINUOUS LOFT OPERATOR NURSE. NO S/S OF DISTRESS. BREATHING SYMMETRICAL. PT STABLE. CALL LIGHT IN REACH. ALL SAFETY MEASURES IN PLACE. IV RUNNING PER MD ORDERS
[2021-09-18 07:27] LABS: LYMPHOCYTES % (AUTO) 3.7 % (20.5-51.1); NEUTROPHILS % (AUTO) 87.8 % (42.2-75.2)
[2021-09-18] MEDS: BLOOD GLUCOSE MONITORING 1 DEV DEV FS SCH ×2 (07:46→12:19)
[2021-09-18 08:00] VITALS: BP 113/42
[2021-09-18] MEDS: FERROUS GLUCONATE 324 MG TAB PO SCH (08:00)
[2021-09-18 08:17] LABS: ANION GAP 13.5 (8-16); CARBON DIOXIDE 22.4 mmol/L (21-32); CHLORIDE 105 mmol/L (98-107); POTASSIUM 4.9 mmol/L (3.5-5.1); SODIUM SERUM 136 mmol/L (136-145)
[2021-09-18 08:18] LABS: CREATININE 1.8 mg/dL (0.6-1.3); GLUCOSE 213 mg/dL (74-106); UREA NITROGEN, BLOOD 61 mg/dL (7-18)
--- NOTE | 2021-09-18 08:19 | NUR ---
SPOKE TO JAIRO IN LAB. CRITICAL VALUES BUN 61, CR 1.8
[2021-09-18] MEDS: INSULIN LISPRO SLIDING SCALE 100 UNITS/ML VIAL SUBQ PRN ×2 (08:59→12:24)
[2021-09-18] MEDS: LACTULOSE 20 GM/30 ML UDC PO SCH (09:00)
[2021-09-18] MEDS: DILTIAZEM 30 MG TAB PO SCH ×2 (09:00→13:00)
[2021-09-18] MEDS: PROPRANOLOL 20 MG TAB PO SCH ×2 (09:01→13:00)
[2021-09-18] MEDS: PANTOPRAZOLE 40 MG TABEC PO SCH (09:01)
[2021-09-18] MEDS: levoFLOXacin 250 MG TAB PO SCH (09:01)
[2021-09-18] MEDS ORDERED: VANCOMYCIN 750 MG in DEXTROSE 5% 250 ML IV SCH (10:00)
[2021-09-18] MEDS ORDERED: PRO5 PO (11:05)
--- NOTE | 2021-09-18 11:14 | NUR ---
PT RESTING IN BED. CHANGED GOWN AND LINENS. PT VOIDED. NO S/S OF DISTRESS. CALL LIGHT IN REACH. ALL SAFETY MEASURES IN PLACE. IV RUNNING PER MD ORDER. CHANGED DRESSING ON LEFT ELBOW
[2021-09-18] MEDS ORDERED: SPIR50TA PO (11:15)
[2021-09-18] MEDS ORDERED: LEVO250T52 PO (11:15)
[2021-09-18] MEDS ORDERED: INSU100S22 SUBQ (11:15)
[2021-09-18 12:00] VITALS: BP 100/43
--- NOTE | 2021-09-18 12:46 | NUR ---
CALLED MARY LIM FOR REPORT. PT ENDORSED TO BESSIE FOR CONTINUITY OF CARE. TAIL PULLER TIME FROM [facility] IS 1300. PT STABLE. LUNCH AT BEDSIDE. WOUND PHOTOS TAKEN
[2021-09-18] MEDS ORDERED: MIDODRINE 5 MG TAB PO SCH (13:00)
--- NOTE | 2021-09-18 13:20 | NUR ---
PT DISCHARGED. [facility] ARRIVED TO TRANSPORT PT TO [facility] FOR CONTINUITY OF CARE. PT STABLE. NO S/S OF DISTRESS. ID BAND REMOVED. IV DISCONNECTED. PERSONAL BELONGINGS IN POSSESSION. ALL SAFETY MEASURES IN PLACE
== END 2021-09-18 13:50 | DRG 871 ==
LOC: MED 13:36 → MTU 17:44
PROVIDERS: ADMIT Family Medicine; ATTEND Family Medicine
PROC: 0W9G3ZZ Drainage of Peritoneal Cavity, Percutaneous Approach (ICD-10-PCS; 2021-09-06)
PROC: 06L38CZ Occlusion of Esophageal Vein with Extraluminal Device, Via Natural or Artificial Opening Endoscopic (ICD-10-PCS; principal; 2021-09-09 15:20)
PROC: 0W9G3ZZ Drainage of Peritoneal Cavity, Percutaneous Approach (ICD-10-PCS; 2021-09-17)
DX: A41.9 Sepsis, unspecified organism (principal); N17.0 Acute kidney failure with tubular necrosis; J18.9 Pneumonia, unspecified organism; K76.7 Hepatorenal syndrome; E43 Unspecified severe protein-calorie malnutrition; R18.8 Other ascites; I48.20 Chronic atrial fibrillation, unspecified; B18.1 Chronic viral hepatitis B without delta-agent; I85.10 Secondary esophageal varices without bleeding; K76.6 Portal hypertension; Z16.19 Resistance to other specified beta lactam antibiotics; N39.0 Urinary tract infection, site not specified; E87.1 Hypo-osmolality and hyponatremia; K74.60 Unspecified cirrhosis of liver; D50.9 Iron deficiency anemia, unspecified; B96.89 Other specified bacterial agents as the cause of diseases classified elsewhere; E11.65 Type 2 diabetes mellitus with hyperglycemia; K21.9 Gastro-esophageal reflux disease without esophagitis; K44.9 Diaphragmatic hernia without obstruction or gangrene; M81.0 Age-related osteoporosis without current pathological fracture; S09.90XA Unspecified injury of head, initial encounter; E87.5 Hyperkalemia; X58.XXXA Exposure to other specified factors, initial encounter; Z20.822 Contact with and (suspected) exposure to COVID-19; K29.50 Unspecified chronic gastritis without bleeding; E88.09 Other disorders of plasma-protein metabolism, not elsewhere classified; D63.1 Anemia in chronic kidney disease; D69.6 Thrombocytopenia, unspecified; K72.90 Hepatic failure, unspecified without coma; I12.9 Hypertensive chronic kidney disease with stage 1 through stage 4 chronic kidney disease, or unspecified chronic kidney disease; E11.22 Type 2 diabetes mellitus with diabetic chronic kidney disease; N18.9 Chronic kidney disease, unspecified; Z79.4 Long term (current) use of insulin; Z79.899 Other long term (current) drug therapy; Y93.89 Activity, other specified; Y92.89 Other specified places as the place of occurrence of the external cause; Y99.8 Other external cause status; Z68.24 Body mass index [BMI] 24.0-24.9, adult
CPT/HCPCS: 36415; 49083; 70450; 71045; 76705; 80048; 80053; 80162; 80202; 81001; 82105; 82140; 82150; 82945; 82948; 83036; 83615; 83690; 83735; 83880; 84100; 84155; 84157; 84439; 84443; 84484; 85025; 85610; 85730; 86704; 86706; 86708; 86709; 86803; 87040; 87070; 87075; 87081; 87086; 87205; 87340; 89051; 93005; 93880; 96374; 96376; 97110; 97112; 97116; 97163-GP; 97530; 99291; J1160; J1200; J1815; J1940; J1956; J2001; J2250; J2405; J2916; J3010; J3370; J3490; J7030; J7060; P9041; P9046; Q0092